=== PATIENT | male | born 1945 | race Caucasian/White ===

== ENCOUNTER → 2020-04-08 09:04 | Outpatient (BNVA) | payer MEDICARE, SELFPAY | PROVIDERS: Family Provider Internal Medicine; PCP Internal Medicine; Referring Provider Dermatology; Visit Provider Dermatology | DX: L30.0 Nummular dermatitis (principal) | CPT/HCPCS: 99203 ==

== ENCOUNTER 2020-12-19 13:23 | Emergency (ER) | payer OTHER, MEDICARE, SELFPAY ==
[2020-12-19 13:29] VITALS: BP 135/66; PULSE 71; RESP 18; TEMP 37.1; O2SAT 97; BMI 31.3
--- NOTE | 2020-12-19 13:42 | W.ED.WEAKNES ---
HPI - Weakness General: Chief complaint: Weakness Stated complaint: dizzy, weakness Time Seen by Provider: 12/19/20 13:42 History of Present Illness: HPI Narrative: 85-year-old male presents to the emergency room with complaint of weakness and progressive cognitive decline. Last several days he is fallen multiple times not remembering to eat or take medications. He is essentially nonverbal when he arrives here he can get him to engage in and questions all of his history is provided by old records and his family. They deny any recent febrile illness he seems to be coughing a little bit more but have not noticed that he is coughing anything up is not any vomiting or diarrhea no hematochezia melena hematemesis cough emesis there is no report of trauma he is not on any anticoagulants. He has a history of coronary artery disease. MD Complaint: generalized weakness Onset (ago): day(s) Duration: constant Location: generalized Severity: moderate Relieving factors: none Exacerbating factors: none Associated symptoms: Reports confusion, decreased appetite and easy bruising; Denies chest pain, chills, melena, diaphoresis, dysuria, fever(s), headache(s), myalgias, nausea, rash, short of breath, syncope or vomiting Review of Systems Const: Denies: fever(s), chills or diaphoresis ENMT: Denies: throat pain, ear or mastoid pain, nasal discharge or nasal congestion Card: Denies: chest pain or syncope Resp: Denies: dyspnea, productive cough or non-productive cough GI: Denies: nausea, vomiting or melena : Denies: dysuria Skin/Breast: Denies: rash or pruritus Neuro: Reports: confusion; Denies: headache(s) Rudy/Lymph: Reports: easy bruising [facility] ED PFS: Medical History (Updated 12/19/20 @ 17:18 by Speedy Skinner DO) Alcohol abuse ASHD (arteriosclerotic heart disease) Cardiomyopathy COPD (chronic obstructive pulmonary disease) CVA (cerebral vascular accident) Dyslipidemia HTN (hypertension) Myocardial infarction Transaminitis Social History Smoking and tobacco status: never smoked Alcohol intake: never Marital status: Single service: Yes branch: [employer] Physical Exam Const: COMMON NORMALS: no acute distress GENERAL APPEARANCE: comfortable HENMT: COMMON NORMALS: normocephalic, atraumatic and hearing grossly normal bilaterally HEAD & SCALP: normocephalic and atraumatic Eye: COMMON NORMALS: Equal, round and reactive pupils present, EOMs intact bilaterally, conjunctivae normal and no scleral icterus CONJUNCTIVA: Yes conjunctivae normal PUPIL: Yes Equal, round and reactive pupils present Neck/C-Spine: COMMON NORMALS: full ROM, no lymphadenopathy, supple and no JVD Lymph: LYMPHATIC: no lymphadenopathy noted and no lymphedema noted Resp: COMMON NORMALS: normal respiratory effort, No retractions, No use of accessory muscles and clear to auscultation bilaterally AUSCULTATION: clear to auscultation bilaterally Cardio: COMMON NORMALS: no JVD, regular rate, regular rhythm and No murmurs present (Cardio) RATE: regular rate RHYTHM: regular rhythm GI: COMMON NORMALS: Soft to palpation and No hepatosplenomegaly present AUSCULTATION: Yes normoactive bowel sounds PALPATION: Yes Soft to palpation, No Tenderness to palpation present (GI), No Guarding due to palpation present (GI) and Yes No hepatosplenomegaly present Extremity: COMMON NORMALS: normal to inspection, capillary refill normal, no clubbing, cyanosis or edema, no calf tenderness and no pedal edema Skin: COMMON NORMALS: no rashes or lesions noted GENERAL SKIN EXAM: no rashes or lesions noted Course Vital Signs: Vital signs: Vital Signs Temperature 98.7 F 12/19/20 13:29 Pulse Rate 71 12/19/20 13:29 Respiratory Rate 18 12/19/20 13:29 Blood Pressure 135/66 12/19/20 13:29 Pulse Oximetry 97 12/19/20 13:29 MDM - Weakness MDM Narrative: Medical decision making narrative: Work-up negative is no sign of bladder infection or lung infection he is anemic and hyponatremic both of these are chronic issues. His kidney function is mildly elevated but not significant enough for hospitalization. Recommend he establish with a primary care suspect he will need senior care placement in rehab for long-term care with his developing dementia symptoms worsen or change return to the emergency room Lab Data: Labs: Lab Results 12/19/20 12/19/20 12/19/20 Range/Units 14:14 14:14 15:45 WBC 6.0 (4.0-10.0) 10^3/ uL RBC 2.55 L (4.1-5.3) 10^6/u L Hgb 9.8 L (11.7-16.6) g/dL Hct 27.8 L (42.0-52.0) % MCV 109.0 H (80-94) fL MCH 38.4 H (28.0-34.0) pg MCHC 35.3 (30.0-36.0) g/dL RDW 14.0 (12.1-15.1) % Plt Count 325 (130-400) 10^3/c mm MPV 10.1 (7.4-10.4) fL Neut % (Auto) 66.1 % Lymph % (Auto) 14.0 % [place] % (Auto) 15.2 % Eos % (Auto) 3.2 % Baso % (Auto) 1.0 % Neut # (Auto) 3.97 (1.8-7.7) 10^3/u L Lymph # (Auto) 0.8 (0.8-4.8) 10^3/u L [place] # (Auto) 0.9 (0.2-0.9) 10^3/u L Eos # (Auto) 0.2 (0.0-0.8) 10^3/u L Baso # (Auto) 0.1 (0.0-0.1) 10^3/u L Nucleated RBC % (a uto) 0 % Nucleated RBCs # 0.0 /100WBC Sodium 130 L (136-145) mmol/L Potassium 4.6 (3.5-5.1) mmol/L Chloride 93 L (98-107) mmol/L Carbon Dioxide 25 (22-29) mmol/L Anion Gap 16.6 (5-19) BUN 17 (8-23) mg/dL Creatinine 1.3 H (0.7-1.2) mg/dL GFR Calculation Not Reportable Glucose 99 (65-115) mg/dL Calculated Osmolal ity 272 L (285-295) mOsm/k g Calcium 9.2 (8.5-10.5) mg/dL Total Bilirubin 0.5 (0.15-1.2) mg/dL AST 83 H (0-40) U/L ALT 34 (0-41) U/L Alkaline Phosphata se 120 (40-130) IU/L Total Protein 7.2 (6.6-8.7) g/dL Albumin 4.3 (3.5-5.2) g/dL Globulin 2.9 (1.3-4.6) g/dL Urine Color Yellow (Yellow) Urine Appearance Clear (CLEAR) Urine pH 5 (5-7) Ur Specific Gravit y 1.015 (1.005-1.030) Urine Protein Neg (Negative) Urine Glucose (UA) Norm (Normal) Urine Ketones 1+ H (Negative) Urine Blood Neg (Negative) Urine Nitrate Negative (Negative) Urine Bilirubin 1+ H (Negative) Urine Urobilinogen 1 H (Negative) mg/dL Ur Leukocyte Sandie ase Negative (Negative) Discharge Plan Discharge Patient Disposition: Home Clinical Impression: Dementia, Generalized weakness Condition: Stable Prescriptions: No Action gabapentin 300 mg capsule 300 mg PO BID RF: 0 aspirin [Aspir-81] 81 mg tablet,delayed release (DR/EC) 81 mg PO DAILY RF: 0 simvastatin 40 mg tablet 40 mg PO DAILY Qty: 90 RF: 3 metoprolol tartrate 50 mg tablet 50 mg PO BID Qty: 180 RF: 0 losartan 50 mg tablet 50 mg PO DAILY Qty: 90 RF: 3 terbinafine HCl 1 % Cream 1 applic TOPICAL BID RF: 0 Flomax 0.4 mg Capsule 0.4 mg PO DAILY RF: 0 Protonix 40 mg Tablet,Delayed Release (Dr/Ec) 40 mg PO DAILY RF: 0 Aleve 220 mg Tablet 220 - 440 mg PO PRN RF: 0 Lasix 20 mg Tablet 20 mg PO DAILY RF: 0 ProAir HFA 90 mcg/actuation Hfa Aerosol Inhaler 2 puff INHALATION Q4H PRN (Reason: Shortness Of Breath) RF: 0 clopidogrel 75 mg tablet 75 mg PO DAILY RF: 0 Discharge Orders: Discharge ED (Routine); Ordered 12/19/20 Ordered By: Speedy Skinner Referrals: Bruno Kennedy [Primary Care Provider] - Discharge Diet: Usual diet Discharge Activity: Limit activity as instructed Patient Instructions: Opioid Safety Activity Restrictions/Additional Instructions: His management will call to make arrangements to help you get established with a PCP. Coding Level of Care Code ED Concrete Grinder Operator for Shilag Fwd Exam Comprehensive
--- NOTE | 2020-12-19 13:43 | ECG_ITS ---
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/NU/[id number] f
--- NOTE | 2020-12-19 13:43 | XR_ITS ---
WS: [id number] Portable AP upright chest, 12/19/2020 Clinical Data: dyspnea/cough Comparison: Portable chest, 01/24/2019. Findings: No nodules, masses or effusions are seen. The heart is slightly enlarged. The pulmonary vas cularity is not increased. No pneumonia or pneumothorax is seen. There are bilateral hilar calcificat ions and peripheral right lung calcifications unchanged. The aortic arch and descending aorta show to rtuosity. Monitor leads are on the chest wall. XR/XR chest 1V portable [id number] Impression: 1. Atherosclerosis. 2. No change in bilateral hilar calcifications and peripheral right lung calcif ications.
--- NOTE | 2020-12-19 14:08 | CT_ITS ---
WS: [id number] CT HEAD TECHNIQUE: Noncontrast CT of the head obtained from the skullbase to the vertex. CLINICAL INFORMATION: AMS COMPARISON: 01 24, DLP: 868.[address] scans at [facility] use at least one of these dose optimization techniques: automat ed exposure control; mA and/or kV adjustment per patient size (includes targeted exams where dose is matched to clinical indication); or iterative reconstruction. FINDINGS: No evidence of intracranial hemorrhage or mass effect. Ventricular system and basal cisterns are fna nt. Moderate small vessel changes with moderate parenchymal volume loss. No extra-axial fluid collect ions. No evidence of mass or mass effect. Paranasal sinuses and mastoid air cells are well aerated. .Normal visualized soft tissues. CT/CT head wo con* [id number] IMPRESSION: 1. No evidence of intracranial hemorrhage or mass effect. 2. Moderate small vessel changes with moderate parenchymal volume loss. 3. No acute intracranial findings.
[2020-12-19 14:40] LABS: Alanine Aminotransferase 34 U/L (0-41); Albumin Level 4.3 g/dL (3.5-5.2); Alkaline Phosphatase 120 IU/L (40-130); Blood Urea Nitrogen 17 mg/dL (8-23); Calcium 9.2 mg/dL (8.5-10.5); Carbon Dioxide 25 mmol/L (22-29); Chloride 93 mmol/L (98-107); Globulin 2.9 g/dL (1.3-4.6); Glucose 99 mg/dL (65-115); Osmolality Calculated 272 mOsm/kg (285-295); Sodium 130 mmol/L (136-145); Total Bilirubin 0.5 mg/dL (0.15-1.2); Total Protein 7.2 g/dL (6.6-8.7)
[2020-12-19 14:42] LABS: Basophils # 0.1 10^3/uL (0.0-0.1); Eosinophils # 0.2 10^3/uL (0.0-0.8); Eosinophils % 3.2 %; Hematocrit 27.8 % (42.0-52.0); Hemoglobin 9.8 g/dL (11.7-16.6); Lymphocytes # 0.8 10^3/uL (0.8-4.8); Mean Corpuscular HGB Conc 35.3 g/dL (30.0-36.0); Mean Corpuscular Hemoglobin 38.4 pg (28.0-34.0); Mean Platelet Volume 10.1 fL (7.4-10.4); Monocytes # 0.9 10^3/uL (0.2-0.9); Monocytes % 15.2 %; Neutrophils # 3.97 10^3/uL (1.8-7.7); Neutrophils % 66.1 %; Nucleated Red Blood Cells % 0 %; Platelet Count 325 10^3/cmm (130-400); Red Blood Count 2.55 10^6/uL (4.1-5.3)
[2020-12-19 14:45] LABS: Anion Gap 16.6 (5-19); Aspartate Amino Transferase 83 U/L (0-40); Potassium 4.6 mmol/L (3.5-5.1)
[2020-12-19 16:00] VITALS: PULSE 59; RESP 20; O2SAT 100
[2020-12-19 16:12] LABS: Add Urine Microscopic? NO; Charge for UA Resulting for Rev
--- NOTE | 2020-12-19 16:34 | PC.PHAR ---
pt unable to verify medications-medications entered are meds that show on ext med history, pts va med list,pts medication bottles, and pts family-notes are made in the pharmacy comments
[2020-12-19 16:40] LABS: Blood Urine Neg (Negative); Glucose Urine UA Norm (Normal); Ketones Urine 1+ (Negative); Nitrate Urine Negative (Negative); Protein Urine Neg (Negative); Specific Gravity, Urine 1.015 (1.005-1.030); Urine Appearance Clear (CLEAR); Urine Color Yellow (Yellow); pH Urine 5 (5-7)
[2020-12-19 16:41] LABS: Bilirubin Urine 1+ (Negative); Leukocyte Esterase Urine Negative (Negative); Urobilinogen Urine 1 mg/dL (Negative)
[2020-12-19 17:00] VITALS: PULSE 61; RESP 22; O2SAT 100
[2020-12-19 18:08] VITALS: BP 148/60; PULSE 64; RESP 15; O2SAT 100
[2020-12-19 18:37] VITALS: BP 155/83; PULSE 64; RESP 14; O2SAT 98
--- NOTE | 2020-12-25 13:59 | DCPLANNER ---
trade show manager had message to speak with patient about getting established with a primary care physician, unable to reach patient at this time.
== END 2020-12-19 18:37 | disposition home or self-care (01) ==
PROVIDERS: Emergency Provider Family Medicine; PCP Internal Medicine
DX: R53.1 Weakness (principal); F03.90 Unspecified dementia, unspecified severity, without behavioral disturbance, psychotic disturbance, mood disturbance, and anxiety; Z79.82 Long term (current) use of aspirin; Z79.02 Long term (current) use of antithrombotics/antiplatelets; J44.9 Chronic obstructive pulmonary disease, unspecified; Z86.73 Personal history of transient ischemic attack (TIA), and cerebral infarction without residual deficits; E78.5 Hyperlipidemia, unspecified; I10 Essential (primary) hypertension; I25.2 Old myocardial infarction
CPT/HCPCS: 70450; 71045; 80053; 81003; 85025; 93005; 99283

== ENCOUNTER 2020-12-22 12:28 | Inpatient (IN) | payer OTHER, MEDICARE, SELFPAY ==
[2020-12-22] VITALS (34 sets, daily range): BP systolic 104–166; BP diastolic 56–118; PULSE 72–114; RESP 16–31; TEMP 37.3–37.4; O2SAT 89–100; BMI 23.5
--- NOTE | 2020-12-22 | XRR_ITS ---
PROCEDURE INFORMATION: Exam: XR Chest Exam date and time: 12/22/2020 10:57 PM Age: 75 years old Clinical indication: Device placement; Ng tube; Additional info: Ng placement TECHNIQUE: Imaging protocol: XR of the chest. Views: 1 view. COMPARISON: CR XR chest 1V portable [id number] 12/19/2020 1:50 PM FINDINGS: Tubes, catheters and devices: The distal tip of the NG tube is just beyond the esophageal hiatus in the gastric cardia area. Distal side hole above the esophageal hiatus. Lungs: Chronic calcifications in the right upper lobe with mild volume loss. No focal acute pulmonary consolidation. Pleural spaces: Unremarkable. No pleural effusion. No pneumothorax. Heart/Mediastinum: Unremarkable. No cardiomegaly. Bones/joints: Unremarkable. XR/XR chest 1V portable [id number] IMPRESSION: Recommend advancement of the NG tube 10-15 cm
--- NOTE | 2020-12-22 12:28 | ED_ITS ---
HPI - Seizure General: Chief Complaint: Seizure Stated Complaint: AMS/ POSSIBLE SEIZURE Time Seen by Provider: 12/22/20 12:28 History of Present Illness: HPI Narrative: 75-year-old male brought in by EMS he was seen 3 days ago was altered mental status work-up was unremarkable and ultimately we discharged him home today he returns they thought he had had a possible seizure shortly after arriving here he had a fixed gaze to the left and upward with nystagmus and torticollis movements of his head with rhythmic movements through his neck no tonic-clonic movements in his upper or lower extremities he was nonresponsive during this time. Patient is a former alcoholic. His blood sugar in the field was in the 130s. complaint: possible seizure Onset (ago): minute(s) Description of Episode: loss of consciousness, tonic-clonic movement and post- event confusion Witnessed: Yes - by Other (Myself and other ER staff) Trauma: No Place: Home Associated symptoms: Deny chest pain, chills, fever(s) or malaise Treatments prior to arrival: none Review of Systems Const: Denies: fever(s), chills, body aches, change in appetite, fatigue or malaise ENMT: Denies: throat pain, ear or mastoid pain, nasal discharge or nasal congestion Card: Denies: chest pain, edema, dyspnea on exertion or orthopnea Resp: Denies: dyspnea, productive cough or non-productive cough GI: Denies: abdominal pain, nausea, vomiting, hematemesis, coffee ground emesis, diarrhea, constipation, bloating, hematochezia or melena : Denies: flank pain, dysuria, urinary frequency or urinary urgency Skin/Breast: Denies: rash or pruritus PFSH ED PFSH: Medical History (Updated 12/22/20 @ 14:43 by Speedy Skinner DO) Alcohol abuse ASHD (arteriosclerotic heart disease) Cardiomyopathy COPD (chronic obstructive pulmonary disease) CVA (cerebral vascular accident) Dyslipidemia HTN (hypertension) Myocardial infarction Transaminitis Social History Smoking and tobacco status: never smoked Alcohol intake: never Marital status: Single service: Yes branch: [employer] Physical Exam Const: COMMON NORMALS: no acute distress HENMT: COMMON NORMALS: normocephalic, atraumatic and hearing grossly normal bilaterally HEAD & SCALP: normocephalic and atraumatic Neck/C-Spine: COMMON NORMALS: no JVD Resp: COMMON NORMALS: normal respiratory effort, No retractions, No use of accessory muscles and clear to auscultation bilaterally AUSCULTATION: clear to auscultation bilaterally Cardio: COMMON NORMALS: no JVD, regular rate, regular rhythm and No murmurs present (Cardio) RATE: regular rate RHYTHM: regular rhythm GI: COMMON NORMALS: Soft to palpation and No hepatosplenomegaly present AUSCULTATION: Yes normoactive bowel sounds PALPATION: Yes Soft to palpation, No Tenderness to palpation present (GI), No Guarding due to palpation present (GI) and Yes No hepatosplenomegaly present Extremity: COMMON NORMALS: normal to inspection, capillary refill normal, no clubbing, cyanosis or edema, no calf tenderness and no pedal edema Skin: COMMON NORMALS: no rashes or lesions noted GENERAL SKIN EXAM: no rashes or lesions noted Course Vital Signs: Vital signs: Vital Signs Temperature 99.2 F 12/22/20 12:31 Pulse Rate 87 12/22/20 14:42 Respiratory Rate 24 H 12/22/20 14:42 Blood Pressure 142/84 12/22/20 14:42 Pulse Oximetry 99 12/22/20 14:42 MDM - Seizure MDM Narrative: Medical decision making narrative: Witnessed seizure in the ER organ to go ahead and admit him gave him Ativan and Keppra. Sodium was slightly low otherwise he has some anemia, other ongoing issues he does have some underl patti dementia and hx of ETOH abuse. The dementia was being being addressed by his primary care doctor. discussed Dr. Greenwood orders written Lab Data: Labs: Lab Results 12/22/20 12/22/20 12/22/20 Range/Units 12:18 12:18 12:18 WBC 11.7 H (4.0-10.0) 10^3/ uL RBC 2.81 L (4.1-5.3) 10^6/u L Hgb 10.7 L (11.7-16.6) g/dL Hct 32.3 L (42.0-52.0) % MCV 114.9 H (80-94) fL MCH 38.1 H (28.0-34.0) pg MCHC 33.1 (30.0-36.0) g/dL RDW 14.5 (12.1-15.1) % Plt Count 384 (130-400) 10^3/c mm MPV 10.1 (7.4-10.4) fL Neut % (Auto) 82.2 % Lymph % (Auto) 4.2 % [place] % (Auto) 12.3 % Eos % (Auto) 0.2 % Baso % (Auto) 0.7 % Neut # (Auto) 9.63 H (1.8-7.7) 10^3/u L Lymph # (Auto) 0.5 L (0.8-4.8) 10^3/u L [place] # (Auto) 1.4 H (0.2-0.9) 10^3/u L Eos # (Auto) 0.0 (0.0-0.8) 10^3/u L Baso # (Auto) 0.1 (0.0-0.1) 10^3/u L Nucleated RBC % (a uto) 0 % Nucleated RBCs # 0.0 /100WBC Specimen Type Sample Site ABG pH (7.35-7.45) ABG pCO2 (35-45) mmHg ABG pO2 (80.0-100.0) mmH g ABG HCO3 (22-26) mmol/L ABG O2 Saturation ABG Base Excess (-2.0-2.0) mmol/ L Suhail Test A-a O2 Gradient (5-10) mmHg Hematocrit (42-52) % Hgb O2 Saturation (95-100) % Carboxyhemoglobin (0.4-20.1) %THgb Methemoglobin (0.4-1.5) % Total Hemoglobin (14-18) g/dL Ionized Calcium (1.1-1.4) mmol/L O2 Delivery Device FiO2 % Commercial Trailer Truck Driver ID Sodium 132 L (136-145) mmol/L Potassium 4.3 (3.5-5.1) mmol/L Chloride 96 L (98-107) mmol/L Carbon Dioxide 24 (22-29) mmol/L Anion Gap 16.3 (5-19) BUN 8 (8-23) mg/dL Creatinine 0.8 (0.7-1.2) mg/dL GFR Calculation Not Reportable Glucose 105 (65-115) mg/dL Calculated Osmolal ity 273 L (285-295) mOsm/k g Lactic Acid 1.7 (0.5-2.2) mmol/L Calcium 9.3 (8.5-10.5) mg/dL Magnesium 1.8 (1.7-2.3) mg/dL Total Bilirubin 0.4 (0.15-1.2) mg/dL AST 57 H (0-40) U/L ALT 29 (0-41) U/L Alkaline Phosphata se 106 (40-130) IU/L Creatine Kinase 239 (39-308) U/L Troponin T Baselin e (0-15) ng/L Total Protein 6.5 L (6.6-8.7) g/dL Albumin 3.9 (3.5-5.2) g/dL Globulin 2.6 (1.3-4.6) g/dL Urine Color (Yellow) Urine Appearance (CLEAR) Urine pH (5-7) Ur Specific Gravit y (1.005-1.030) Urine Protein (Negative) Urine Glucose (UA) (Normal) Urine Ketones (Negative) Urine Blood (Negative) Urine Nitrate (Negative) Urine Bilirubin (Negative) Urine Urobilinogen (Negative) mg/dL Ur Leukocyte Sandie ase (Negative) Urine RBC (0-2) /hpf Urine WBC (0-5) /hpf Ur Squamous Epith Cells (0-5) /hpf Amorphous Sediment Urine Bacteria (NONE) /hpf 12/22/20 12/22/20 12/22/20 Range/Units 12:18 12:36 12:55 WBC (4.0-10.0) 10^3/ uL RBC (4.1-5.3) 10^6/u L Hgb (11.7-16.6) g/dL Hct (42.0-52.0) % MCV (80-94) fL MCH (28.0-34.0) pg MCHC (30.0-36.0) g/dL RDW (12.1-15.1) % Plt Count (130-400) 10^3/c mm MPV (7.4-10.4) fL Neut % (Auto) % Lymph % (Auto) % [place] % (Auto) % Eos % (Auto) % Baso % (Auto) % Neut # (Auto) (1.8-7.7) 10^3/u L Lymph # (Auto) (0.8-4.8) 10^3/u L [place] # (Auto) (0.2-0.9) 10^3/u L Eos # (Auto) (0.0-0.8) 10^3/u L Baso # (Auto) (0.0-0.1) 10^3/u L Nucleated RBC % (a uto) % Nucleated RBCs # /100WBC Specimen Type Arterial Sample Site Radial, left ABG pH 7.46 H (7.35-7.45) ABG pCO2 33.1 L (35-45) mmHg ABG pO2 78.6 L (80.0-100.0) mmH g ABG HCO3 23.3 (22-26) mmol/L ABG O2 Saturation 95.2 ABG Base Excess -0.2 (-2.0-2.0) mmol/ L Suhail Test Pos A-a O2 Gradient 3.8 L (5-10) mmHg Hematocrit 31.7 L (42-52) % Hgb O2 Saturation 94.0 L (95-100) % Carboxyhemoglobin 0.3 L (0.4-20.1) %THgb Methemoglobin 1.0 (0.4-1.5) % Total Hemoglobin 10.3 L (14-18) g/dL Ionized Calcium 1.2 (1.1-1.4) mmol/L O2 Delivery Device Room air FiO2 21.0 % Commercial Trailer Truck Driver ID Amh Sodium 133.0 (136-145) mmol/L Potassium 4.3 (3.5-5.1) mmol/L Chloride (98-107) mmol/L Carbon Dioxide (22-29) mmol/L Anion Gap (5-19) BUN (8-23) mg/dL Creatinine (0.7-1.2) mg/dL GFR Calculation Glucose 110.0 (65-115) mg/dL Calculated Osmolal ity (285-295) mOsm/k g Lactic Acid (0.5-2.2) mmol/L Calcium (8.5-10.5) mg/dL Magnesium (1.7-2.3) mg/dL Total Bilirubin (0.15-1.2) mg/dL AST (0-40) U/L ALT (0-41) U/L Alkaline Phosphata se (40-130) IU/L Creatine Kinase (39-308) U/L Troponin T Baselin e 64 H (0-15) ng/L Total Protein (6.6-8.7) g/dL Albumin (3.5-5.2) g/dL Globulin (1.3-4.6) g/dL Urine Color Yellow (Yellow) Urine Appearance Cloudy (CLEAR) Urine pH 7 (5-7) Ur Specific Gravit y 1.010 (1.005-1.030) Urine Protein Trace (Negative) Urine Glucose (UA) Norm (Normal) Urine Ketones Negative (Negative) Urine Blood 2+ H (Negative) Urine Nitrate Positive H (Negative) Urine Bilirubin 1+ H (Negative) Urine Urobilinogen 1 H (Negative) mg/dL Ur Leukocyte Sandie ase 1+ H (Negative) Urine RBC 0-4 H (0-2) /hpf Urine WBC 10-15 H (0-5) /hpf Ur Squamous Epith Cells 0-4 H (0-5) /hpf Amorphous Sediment Not Reportable Urine Bacteria 2+ H (NONE) /hpf Discharge Plan Discharge Patient Disposition: Admitted As Inpatient Clinical Impression: New onset seizure, Alcohol abuse, HTN (hypertension), ASHD (arteriosclerotic heart disease), Dementia Condition: Stable Coding Level of Care Code ED Car Worker for Harris Fwd Exam Comprehensive
--- NOTE | 2020-12-22 12:29 | ECG_ITS ---
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 Measurements Intervals [place] Rate: 98 P: 29 [place]: 153 QRS: 5 QRSD: 107 T: 113 QT: 362 QTc: 464 Interpretive Statements SINUS RHYTHM NONSPECIFIC T-WAVE ABNORMALITY Compared to ECG 12/19/2020 13:35:35 No significant changes Electronically Signed On 12-22-2020 19:08:37 CDT by Rocky Sanchez M.D. [id number]
--- NOTE | 2020-12-22 12:29 | CT_ITS ---
WS: [id number] CT HEAD NONCONTRAST HISTORY: AMS TECHNIQUE: Contiguous axial imaging performed through the brain in 2.5 mm imaging. Bone and soft tiss ue windows. Sagittal and coronal reformats reviewed. All CT scans at [facility] use at ast one of these dose optimization techniques: automated exposure control; mA and/or kV adjustment pe r patient size (includes targeted exams where dose is matched to clinical indication); or iterative r econstruction. DLP: 1570.38 mGy.cm COMPARISON: 12/19/2020 No acute intracranial hemorrhage, midline shift or mass effect. Moderate bilateral symmetric atrophy. Mild chronic microvascular ischemic disease. Ventricles: Ventricles and extra-axial spaces are mildly prominent due to atrophy. Paranasal sinuses: As visualized are clear. Mastoid air cells: Well pneumatized. Calvarium and scalp: Skull is intact with no soft tissue edema or swelling. CT/CT head wo con* [id number] IMPRESSION: 1. No acute intracranial hemorrhage or edema. 2. Moderate atrophy. Similar to the prior study of 12/19/2020.
[2020-12-22] MEDS: LORazepam 2 mg/mL INJ 1 mL IVP ×2 (12:37→20:57)
[2020-12-22 12:47] LABS: ABG PCO2 33.1 mmHg (35-45); ABG PH Result 7.46 (7.35-7.45); Alveolar-Arterial Oxygen Gradi 3.8 mmHg (5-10); Arterial Blood Gas Hematocrit 31.7 % (42-52); Base Excess ABG -0.2 mmol/L (-2.0-2.0); Blood Gas Allen Test Pos; Blood Gas Operator Identificat AMH; Blood Gas Sample Site Radial, left; Blood Gas Sample Type Arterial; Carboxyhemoglobin 0.3 %THgb (0.4-20.1); HCO3 ABG 23.3 mmol/L (22-26); Ionized Calcium Level - ABG 1.2 mmol/L (1.1-1.4); Oxygen Device ROOM AIR; Oxygen Saturation ABG 95.2; PO2 ABG 78.6 mmHg (80.0-100.0); Potassium Level - ABG 4.3 mmol/L (3.5-5.0); Total Hemoglobin 10.3 g/dL (14-18)
[2020-12-22 13:09] LABS: Basophils # 0.1 10^3/uL (0.0-0.1); Basophils % 0.7 %; Eosinophils % 0.2 %; Hematocrit 32.3 % (42.0-52.0); Hemoglobin 10.7 g/dL (11.7-16.6); Lymphocytes # 0.5 10^3/uL (0.8-4.8); Lymphocytes % 4.2 %; Mean Corpuscular HGB Conc 33.1 g/dL (30.0-36.0); Mean Corpuscular Hemoglobin 38.1 pg (28.0-34.0); Mean Corpuscular Volume 114.9 fL (80-94); Mean Platelet Volume 10.1 fL (7.4-10.4); Monocytes # 1.4 10^3/uL (0.2-0.9); Monocytes % 12.3 %; Neutrophils # 9.63 10^3/uL (1.8-7.7); Neutrophils % 82.2 %; Nucleated Red Blood Cells % 0 %; Platelet Count 384 10^3/cmm (130-400); Red Blood Count 2.81 10^6/uL (4.1-5.3); Red Cell Distribution Width 14.5 % (12.1-15.1); White Blood Count 11.7 10^3/uL (4.0-10.0)
--- NOTE | 2020-12-22 13:14 | PC.NURSE ---
Pt to CT
[2020-12-22 13:19] LABS: Bilirubin Urine 1+ (Negative); Blood Urine 2+ (Negative); Glucose Urine UA Norm (Normal); Ketones Urine Negative (Negative); Nitrate Urine Positive (Negative); Protein Urine Trace (Negative); Urine Appearance Cloudy (CLEAR); Urine Color Yellow (Yellow); Urobilinogen Urine 1 mg/dL (Negative); pH Urine 7 (5-7)
[2020-12-22 13:20] LABS: Add Urine Microscopic? YES; Leukocyte Esterase Urine 1+ (Negative)
[2020-12-22 13:21] LABS: Lactic Sepsis W/Reflex 1.7 mmol/L (0.5-2.2)
[2020-12-22 13:22] LABS: Alanine Aminotransferase 29 U/L (0-41); Albumin Level 3.9 g/dL (3.5-5.2); Alkaline Phosphatase 106 IU/L (40-130); Anion Gap 16.3 (5-19); Aspartate Amino Transferase 57 U/L (0-40); Blood Urea Nitrogen 8 mg/dL (8-23); Calcium 9.3 mg/dL (8.5-10.5); Carbon Dioxide 24 mmol/L (22-29); Chloride 96 mmol/L (98-107); Creatine Phosphokinase 239 U/L (39-308); Creatinine Clr Calc Pharmacy 76.6283; Globulin 2.6 g/dL (1.3-4.6); Glucose 105 mg/dL (65-115); Magnesium 1.8 mg/dL (1.7-2.3); Osmolality Calculated 273 mOsm/kg (285-295); Potassium 4.3 mmol/L (3.5-5.1); Sodium 132 mmol/L (136-145); Total Bilirubin 0.4 mg/dL (0.15-1.2); Total Protein 6.5 g/dL (6.6-8.7)
[2020-12-22 13:25] LABS: Troponin(5th) Baseline 64 ng/L (0-15)
[2020-12-22 13:35] LABS: Add Urine Culture? Yes; Bacteria Urine 2+ /hpf; RBC Urine 0-4 /hpf (0-2); Squamous Epithelial Cell Urine 0-4 /hpf (0-5)
[2020-12-22] MEDS: cefTRIAXone 1,000 MG in sodium chloride 0.9% (plus) 50 ML 100 MG IV (14:08)
--- NOTE | 2020-12-22 14:29 | ECG_ITS ---
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 Measurements Intervals [place] Rate: 104 P: [place]: QRS: 13 QRSD: 86 T: 250 QT: 371 QTc: 490 Interpretive Statements RHYTHM ASSESSMENT NOT POSSIBLE BECAUSE OF BASELINE ARTIFACT MODERATE T-WAVE ABNORMALITY, CONSIDER INFERIOR ISCHEMIA [-0.1+ mV T WAVE IN II/aVF] Compared to ECG 12/22/2020 12:42:41 Possible ischemia now present Sinus rhythm no longer present T-wave abnormality still present Electronically Signed On 12-22-2020 19:09:58 CDT by Rocky Sanchez M.D. [email or web address]/OM/[id number]
[2020-12-22 14:59] LABS: Troponin 5 2HR 65.63 ng/L (0-15); Troponin 5 2HR Delta 1.63 ABS# (0-10)
--- NOTE | 2020-12-22 15:38 | PM.HP ---
Providers/Chief Complaint Primary Care Provider: [facility] Chief Complaint: AMS/ POSSIBLE SEIZURE History of Present Illness 75-year-old gentleman with history of CAD, HTN, current smoker, alcohol abuse, COPD, cardiomyopathy living independently, intermittently visited by his sister for help around home and to check up on him, doing groceries delivered to him, apart from that overall with some memory decline, but able to get around, cook for himself, however, recently more confused, with more trouble with his memory, all seem more recent within about a week or so, since due to confusion, memory issues sister status was unable to do anything for himself or even walk. She does state that she had taken away his cigarettes as he was an active smoker up until now, and also had cut off his supply of liquor, stating he had not drink anything at least since Tuesday unless he was getting it elsewhere. She denies that he had had any specific complaints. He does have a rash around his body which he has been putting an ointment for as prescribed by his manager flight and it has been improving. She states that she has had a few falls, and will try to crawl around floor when she was not there by his side. She took him to his primary care provider, and in the office he had had a seizure. He was then transferred to ER where he has had further 2 episodes but none more so far. During the seizure he was noted to have gaze deviation to the left. This had resolved after treatment with benzodiazepine, and he was loaded with Keppra as well. So far he has not woken up. In ER he also received a dose of ceftriaxone due to possible urinary tract infection as indicated by UA. Head CT in the ER without intracranial hemorrhage or edema. Moderate atrophy. His sister Génesis denies any additional recent issues. He does get bothered by chronic left shoulder pain for which he takes pain medications. She does state that he had not taken his medications in likely at least several days. She denies any recent fever. Denies any other rashes. Denies tick bite. She states she does not have prior advanced directives. She has 2 children but they have been estranged for over 40 years. She and her sister are his only close relatives at this time. She reports she had previously indicated he would not want CPR or intubation. Review of Systems Narrative: Patient unable to provide his own review of systems. Review of systems obtained from his sister. Const: Reports: other (Confused, generally weak, unable to walk.); Denies: fever(s), chills, body aches or malaise Eyes: Denies: change in vision or eye redness ENMT: Denies: throat pain, oral sores or ear or mastoid pain Card: Denies: chest pain, edema, pre-syncope or dyspnea on exertion Resp: Denies: dyspnea, productive cough, change in phlegm color or hemoptysis GI: Denies: abdominal pain, nausea, vomiting, diarrhea, constipation, hematochezia or melena : Denies: flank pain, difficulty urinating, urinary frequency or hematuria Musc: Reports: other (Chronic left shoulder pain); Denies: back pain, joint swelling or joint redness Skin/Breast: Denies: rash, sores or new lesions Neuro: Reports: difficulty walking, frequent falls, confusion and seizure-like activity; Denies: headache(s), numbness in extremities or dizziness Endo: Denies: polyuria or polydipsia Rudy/Lymph: Denies: easy bleeding or purpura All/Imm: Denies: urticaria, throat swelling or tongue swelling Medications/Allergies Home Medications Medication Instructions Recorded Confirmed Last Taken Type gabapentin 300 mg capsule 300 mg PO BID 10/19/19 12/22/20 12/20/20 History simvastatin 40 mg tablet 40 mg PO DAILY #90 tab 02/18/20 12/22/20 12/20/20 Rx losartan 50 mg tablet 50 mg PO DAILY #90 tab 08/18/20 12/22/20 Unknown Rx metoprolol tartrate 50 mg tablet 50 mg PO BID #180 tab 08/18/20 12/22/20 12/20/20 Rx albuterol sulfate [ProAir HFA] 2 puff INHALATION Q4H PRN 12/19/20 12/22/20 Unknown History clopidogrel 75 mg PO DAILY 12/19/20 12/22/20 12/20/20 History furosemide [Lasix] 20 mg PO DAILY 12/19/20 12/22/20 12/20/20 History naproxen sodium [Aleve] 220 - 440 mg PO PRN 12/19/20 12/22/20 Unknown History pantoprazole [Protonix] 40 mg PO DAILY 12/19/20 12/22/20 12/20/20 History tamsulosin [Flomax] 0.4 mg PO DAILY 12/19/20 12/22/20 12/19/20 History terbinafine HCl 1 applic TOPICAL BID 12/19/20 12/22/20 Unknown History aspirin [Aspir-81] 81 mg PO DAILY 12/22/20 12/22/20 12/20/20 History hydroxyzine HCl 10 mg PO QID PRN 12/22/20 12/22/20 Unknown History Allergies Allergy/AdvReac Type Severity Reaction Status Date / Time No Known Allergies Allergy Verified 12/19/20 16:34 PFSH Acute PFSH: Medical History (Updated 12/22/20 @ 15:52 by Remy Greenwood MD) Alcohol abuse ASHD (arteriosclerotic heart disease) Cardiomyopathy COPD (chronic obstructive pulmonary disease) CVA (cerebral vascular accident) Dyslipidemia HTN (hypertension) Myocardial infarction Transaminitis Surgical History Stented coronary artery Social History (Updated 12/22/20 @ 15:42 by Remy Greenwood MD) Smoking and tobacco status: current every day smoker Alcohol intake: current Substance/Drug Use: never Caregiver/support person: Yes Lives independently: Yes Marital status: / service: Yes branch: [employer] Vitals/I&O/Wt Last Vital Signs Temp 99.2 F 12/22/20 12:31 Pulse 91 12/22/20 15:34 Resp 28 H 12/22/20 15:34 BP 121/94 12/22/20 15:34 Pulse Ox 95 12/22/20 15:34 12/22/20 12/22/20 12/22/20 06:59 14:59 22:59 Intake Total 110 / 110 Balance 110 / 110 Weight last 48 hrs Weight 68.039 kg Physical Exam Const: COMMON NORMALS: no acute distress; negative for patient oriented x3 GENERAL APPEARANCE: frail appearing ORIENTATION/CONSCIOUSNESS: Yes patient obtunded HENMT: COMMON NORMALS: oropharynx normal Neck/C-Spine: COMMON NORMALS: no JVD Resp: COMMON NORMALS: normal respiratory effort AUSCULTATION: rhonchi Cardio: COMMON NORMALS: no JVD, regular rhythm, S1 normal heart sound present, S2 normal heart sound present and No murmurs present (Cardio) RHYTHM: regular rhythm HEART SOUNDS: S1 normal heart sound present and S2 normal heart sound present GI: COMMON NORMALS: Normal to inspection, nondistended, normoactive bowel sounds present, Soft to palpation and non-tender PALPATION: Yes Soft to palpation Extremity: COMMON NORMALS: no joint enlargement and no pedal edema OTHER: Bruising around second, third toes of the left foot, fourth, fifth toes on the right foot. Neuro: COMMON NORMALS: moves all extremities; negative for patient oriented x3 SENSORIUM/ORIENTATION: Yes lethargic (Occ moaning, not responding to voice, sternal rub. Moves extremities.) and Yes obtunded MOTOR EXAM: Motor fasciculations not present and Abnormal muscle tone present hypertonic: all Right pupil size (mm): 2 Left pupil size (mm): 2 Skin: GENERAL SKIN EXAM: ecchymosis OTHER: Nummular dermatitis lesions of feet, several abrasions on the lower legs. Abrasion of distal fourth toe medial to the nail. Urinary Catheter Management^: Ricardo: Cath Placed During This Visit: yes Urinary Catheter Date of Insertion: 12/22/20 Urinary Catheter Time of Insertion: 12:57 Data : 12/22/20 12:18 12/22/20 12:18 Micro: Microbiology 12/22/20 14:25 Blood Culture - Preliminary Blood SPECIMEN COLLECTED A&P Assessment and plan (1) New onset seizure: New onset seizures. Does appear to have CVA listed as prior diagnosis, although without major changes noted on CT. Presentation overall nonfocal. Sister is not aware of prior CVA. He is, however a heavy drinker, and sister states had not had a drink since Tuesday. Discussed with her concern regarding alcohol withdrawal with severe withdrawal, delirium tremens, and withdrawal seizure. In ER received Ativan, loaded with Keppra. Continue supportive care for alcohol withdrawal, monitor for any additional seizure and treat first choice with benzodiazepine. Continue Keppra. Maintain seizure precautions. Once he is able to may benefit from assessment by MRI due to new onset seizure, follow-up with neurology. No longer appears to have gaze deviation, but has not woken up. Requested ICU bed for him. Status: Acute (2) Metabolic encephalopathy: Acute encephalopathy for about a weeks duration, sister notes progressive worsening of memory, general faculties, subsequently to the point of being unable to care for himself, generalized weakness, frequent falls, progressive confusion and memory loss. Prior to that was needing assistance, with groceries being delivered, sister checking up on him intermittently, but able to hold conversation, cook for himself. Currently concern for acute encephalopathy secondary to alcohol withdrawal, possibly postictal state after seizure as well, he also has not taken his medications in several days per sister. Could be medication withdrawal including gabapentin. Also appears to have urinary tract infection. We will see if we can get NG tube placed. Resume gabapentin, continue seizure management as above. Treat UTI. Check TSH. Minimal hyponatremia, doubt contributing. With history of heavy alcohol intake, known prior history of cirrhosis. The liver appears normal. Minimal hyponatremia, mild AST elevation, although chronicity unknown. Will request for a ultrasound to check for ascites, liver echogenicity. Status: Acute (3) Alcohol withdrawal: Benzodiazepines, supportive care, vitamin replacement as per [facility] protocol. Requested ICU bed for him. Status: Acute (4) UTI (urinary tract infection): Continue Rocephin. Follow-up urine culture. Check abdominal ultrasound. Status: Acute (5) Repeated falls: Secondary to metabolic encephalopathy, generalized weakness, alcohol withdrawal, UTI, will benefit from PT, OT once he is able to participate. Status: Acute (6) Difficulty walking: As above. Lives alone. Status: Acute Additional A&P Information Abrasion on lower extremities, fourth toe. Wound care. Bruising of third and fourth on the left and fourth and fifth toes on the right following several falls. Will request imaging with x-ray. CAD status post stenting: Continue cardiac meds. HTN HLD Reported history of CVA Cardiomyopathy COPD Current smoker Heavy alcohol intake Nummular exema Attestations Medical Necessity Statement*: Admission of over 2 midnights is going to needed versus management of acute encephalopathy, new onset seizure, severe alcohol withdrawal, UTI Coding Level of Care Code Acute Pharmacy Benefit Manager for [facility] Fwd Diagnoses New onset seizure R56.9 Metabolic encephalopathy G93.41 Alcohol withdrawal F10.239 UTI (urinary tract infection) N39.0 Repeated falls R29.6 Difficulty walking R26.2
--- NOTE | 2020-12-22 16:04 | USR_ITS ---
PROCEDURE INFORMATION: Exam: US Abdomen Complete Exam date and time: 12/22/2020 4:09 PM Age: 75 years old Clinical indication: Abdominal tenderness; Patient HX: Heavy alcohol intake history encephalopathy; Additional info: Ascites? Cirrhosis? Encephalopathy? Hydronephrosis. Heavy alcohol intake history. UTI TECHNIQUE: Imaging protocol: Real-time ultrasound of the abdomen with image documentation. COMPARISON: No relevant prior studies available. FINDINGS: Liver: Mild increase in liver parenchyma echogenicity without focal mass. No enlargement. Smooth surface contour. Gallbladder: Normal. No gallstones. There is no gallbladder wall thickening. Common bile duct: Normal. No stones. No dilation. Pancreas: Visualized pancreas is unremarkable. Right kidney: Right renal length 11.7 cm. Moderate severity diffuse cortical volume loss. Exophytic small simple upper pole cyst 1 cm diameter. Negative for hydronephrosis. No echogenic stones. Left kidney: Left renal length 9.3 cm. Negative hydronephrosis. Diffuse cortical volume loss. Simple exophytic cyst in the upper pole 1.6 cm diameter. Spleen: Splenic length 9.9 cm. Unremarkable morphology. Aorta: Diffuse atherosclerosis of abdominal aorta noted with echogenic plaques along the live. No obvious aneurysm. Inferior vena cava: Normal. Intraperitoneal space: No ascites. US/US abdomen complete* [id number] IMPRESSION: No acute findings.
--- NOTE | 2020-12-22 16:31 | PC.NURSE ---
US at bedside
--- NOTE | 2020-12-22 17:38 | XRR_ITS ---
PROCEDURE INFORMATION: Exam: XR Right Foot Exam date and time: 12/22/2020 6:07 PM Age: 75 years old Clinical indication: Injury or trauma; Fall; Blunt trauma; Foot; Bilateral; Additional info: Falls, bruising of toes TECHNIQUE: Imaging protocol: XR Right foot. Views: 3 or more views. COMPARISON: CR Ankle 3 views, RIGHT* [id number] 03/06/2017 4:10 PM FINDINGS: Bones/joints: Evaluation is limited by positioning. No gross evidence for acute bony injury or malalignment in the visualized right foot. Degenerative change. Soft tissues: No radiopaque soft tissue foreign body. XR/XR foot RT min 3V* [id number] IMPRESSION: Evaluation is limited by positioning. No gross evidence for acute bony injury or malalignment in the visualized right foot.
--- NOTE | 2020-12-22 17:38 | XRR_ITS ---
PROCEDURE INFORMATION: Exam: XR Left Foot Exam date and time: 12/22/2020 6:07 PM Age: 75 years old Clinical indication: Injury or trauma; Fall; Blunt trauma; Foot; Bilateral; Additional info: Falls, bruising of toes TECHNIQUE: Imaging protocol: XR Left foot. Views: 3 or more views. COMPARISON: CR Foot 3 views, LEFT* [id number] 03/06/2017 4:24 PM FINDINGS: Bones/joints: Evaluation is limited by positioning. No gross evidence for acute bony injury or malalignment in the visualized left foot. Degenerative change. Soft tissues: Well-circumscribed 3 mm nodular radiopaque density about the medial aspect of the 1st IP joint. XR/XR foot LT min 3V* [id number] IMPRESSION: Evaluation is limited by positioning. No gross evidence for acute bony injury or malalignment in the visualized left foot.
--- NOTE | 2020-12-22 18:29 | ECG_ITS ---
[facility] Test Date: 2020-12-23 Pat Name: Pierce Bailey Department: Room: ICU02 Gender: Male Forge Operator: : [id number] Requested By: Speedy Sneed Order Number: [id number] Eric MD: Rocky Sanchez M.D. Measurements Intervals Rocky Rate: 99 P: 60 RI: 190 QRS: 2 QRSD: 87 T: 97 QT: 335 QTc: 430 Interpretive Statements SINUS RHYTHM WITH OCCASIONAL VENTRICULAR PREMATURE COMPLEXES LOW QRS VOLTAGE IN PRECORDIAL LEADS [QRS DEFLECTION < 1.0 mV IN CHEST LEADS] NONSPECIFIC T-WAVE ABNORMALITY Compared to ECG 12/22/2020 14:23:19 Ventricular premature complex(es) now present Low QRS voltage now present Possible ischemia no longer present T-wave abnormality still present Electronically Signed On 12-23-2020 22:10:43 CDT by Rocky Sanchez M.D. [id number]
[2020-12-22] MEDS: sodium chloride 0.9% 1,000 ML 100 ML IV (18:30)
[2020-12-22 18:42] LABS: Thyroid Stimulating Hormone 4.18 uIU/mL (0.27-4.20)
--- NOTE | 2020-12-22 19:06 | PC.NURSE ---
Patient was admitted to ICU at around 1700. Patient does not respond to verbal commands. Withdrawn from pain only. Bruising, scabs and swelling was noted to bilateral ankles. This nurse attempted to place NG tube without success. Admission was completed by sister.
[2020-12-22 19:14] LABS: Troponin 5 6HR 45.77 ng/L (0-15)
[2020-12-22] MEDS: famotidine 20 mg/2 mL INJ IVP (20:57)
[2020-12-23] VITALS (49 sets, daily range): BP systolic 103–153; BP diastolic 56–121; PULSE 72–106; RESP 18–32; TEMP 37.2–37.8; O2SAT 89–100; BMI 25.0
[2020-12-23] MEDS: gabapentin 300 mg Capsule NG-TUBE ×3 (00:16→21:42)
[2020-12-23] MEDS: terbinafine 1% Cream 15 gm 1 APPLIC TOPICAL ×2 (00:17→09:51)
--- NOTE | 2020-12-23 00:30 | PC.NURSE ---
Chest X-Ray This nurse reviewed the patients chest x-ray report and advanced the NG tube 10 cm further into the stomach as the report mentioned.
[2020-12-23] MEDS: metoprolol tartrate 25 mg Tablet 12.5 MG NG-TUBE ×3 (00:35→21:43)
[2020-12-23] MEDS: sodium chloride 0.9% 1,000 ML 100 ML IV ×2 (03:47→16:56)
[2020-12-23 05:07] LABS: Basophils % 0.2 %; Eosinophils % 0.1 %; Hematocrit 28.5 % (42.0-52.0); Hemoglobin 9.1 g/dL (11.7-16.6); Lymphocytes # 0.7 10^3/uL (0.8-4.8); Lymphocytes % 6.2 %; Mean Corpuscular HGB Conc 31.9 g/dL (30.0-36.0); Mean Corpuscular Hemoglobin 38.6 pg (28.0-34.0); Mean Corpuscular Volume 120.8 fL (80-94); Mean Platelet Volume 9.8 fL (7.4-10.4); Monocytes % 19.1 %; Neutrophils # 7.74 10^3/uL (1.8-7.7); Nucleated Red Blood Cells % 0 %; Platelet Count 323 10^3/cmm (130-400); Red Blood Count 2.36 10^6/uL (4.1-5.3); Red Cell Distribution Width 14.7 % (12.1-15.1); White Blood Count 10.5 10^3/uL (4.0-10.0)
[2020-12-23 05:30] LABS: Alanine Aminotransferase 22 U/L (0-41); Albumin Level 3.1 g/dL (3.5-5.2); Alkaline Phosphatase 90 IU/L (40-130); Anion Gap 15.4 (5-19); Aspartate Amino Transferase 41 U/L (0-40); Blood Urea Nitrogen 8 mg/dL (8-23); Calcium 8.5 mg/dL (8.5-10.5); Carbon Dioxide 22 mmol/L (22-29); Chloride 102 mmol/L (98-107); Creatinine Clr Calc Pharmacy 76.6283; Globulin 2.8 g/dL (1.3-4.6); Glucose 85 mg/dL (65-115); Osmolality Calculated 278 mOsm/kg (285-295); Potassium 4.4 mmol/L (3.5-5.1); Sodium 135 mmol/L (136-145); Total Bilirubin 0.3 mg/dL (0.15-1.2); Total Protein 5.9 g/dL (6.6-8.7)
--- NOTE | 2020-12-23 06:45 | PC.NURSE ---
Shift Summary Patient has not had any verbal response all evening, only a few moans. Patient had a small brown smear for a bowel movement. Ricardo catheter had 430 mls of clear dark yellow urine out all evening. Patient has NS infusing at 100 mls/hr in the left forearm IV site. Scratches were noticed on the left foot and one scratch was noticed on the right arm which are both charted in the wound assessment. A skin tear was noticed on the left lower leg which is also charted in the wound assessment. Patient has audible crackles in the lungs and has to be suctioned frequently. NG tube was placed this evening and confirmed by chest x-ray. NG tube is not currently hooked to suction and has no tube feeding infusing. Patient received a bed bath and complete linen change this evening. Patient is currently on 2 liters of oxygen nasal cannula. Patient had episodes throughout the night of turning head towards the left side and the left side of the mouth twitches and the eyes close and twitch. No tremors were noted.
[2020-12-23] MEDS: multivitamin therapeutic Tablet 1 TAB PO (08:32)
[2020-12-23] MEDS: thiamine 100 mg Tablet PO (08:32)
[2020-12-23] MEDS: atorvastatin 40 mg Tablet 20 MG NG-TUBE (08:32)
[2020-12-23] MEDS: folic acid 1 mg Tablet PO (08:32)
[2020-12-23] MEDS: clopidogrel 75 mg Tablet NG-TUBE (08:33)
[2020-12-23] MEDS: famotidine 20 mg/2 mL INJ IVP ×2 (08:33→21:35)
[2020-12-23] MEDS: LORazepam 2 mg/mL INJ 1 mL IM (08:49)
--- NOTE | 2020-12-23 08:56 | PM.PN ---
Subjective Subjective: Interval history: Reviewed nursing note reveals he has had additional seizure episodes overnight with gaze deviation. Appears to also have an facial twitching, and currently without gaze deviation, but does have intermittent/irregular facial twitch. He has not become alert. His other sister is at bedside today. Discussed with her concern regarding recurrent and possibly even ongoing seizure. We have requested EEG. We are also increasing dose of Keppra to 2000 twice daily, in addition discussed additional small doses of benzodiazepine which would be more helpful with alcohol withdrawal seizure while monitoring his respite status. The sister visiting here today also confirms the same with regards to him not wanting to have intubation. We discussed also the setting nature of these medications, risk of respiratory suppression, risk of aspiration, other complications, including at this time his elevated risk of mortality. Vitals/I&O/Wt Last Vital Signs Temp 99.3 F 12/23/20 04:00 Pulse 82 12/23/20 07:50 Resp 27 H 12/23/20 06:00 BP 147/75 12/23/20 06:00 Pulse Ox 96 12/23/20 07:50 12/22/20 12/23/20 12/23/20 22:59 06:59 14:59 Intake Total 50 / 160 1033.333 / 1193.333 Output Total 430 / 430 Balance 50 / 160 603.333 / 763.333 Weight last 48 hrs Weight 72.631 kg Weight 68.039 kg Physical Exam Const: COMMON NORMALS: no acute distress; negative for patient oriented x3 GENERAL APPEARANCE: lethargic (Occ moaning, not responding to voice, sternal rub. Moves extremities.) and frail appearing ORIENTATION/CONSCIOUSNESS: Yes patient obtunded and Yes lethargic (Occ moaning, not responding to voice, sternal rub. Moves extremities.) HENMT: COMMON NORMALS: oropharynx normal Neck/C-Spine: COMMON NORMALS: no JVD Resp: COMMON NORMALS: normal respiratory effort AUSCULTATION: rhonchi Cardio: COMMON NORMALS: no JVD, regular rhythm, S1 normal heart sound present, S2 normal heart sound present and No murmurs present (Cardio) RHYTHM: regular rhythm HEART SOUNDS: S1 normal heart sound present and S2 normal heart sound present GI: COMMON NORMALS: Normal to inspection, nondistended, normoactive bowel sounds present, Soft to palpation and non-tender PALPATION: Yes Soft to palpation Extremity: COMMON NORMALS: no joint enlargement and no pedal edema OTHER: Bruising around second, third toes of the left foot, fourth, fifth toes on the right foot. Neuro: COMMON NORMALS: moves all extremities; negative for patient oriented x3 SENSORIUM/ORIENTATION: Yes lethargic (Occ moaning, not responding to voice, sternal rub. Moves extremities.) and Yes obtunded MOTOR EXAM: Motor fasciculations not present and Abnormal muscle tone present hypertonic: all Right pupil size (mm): 2 Left pupil size (mm): 2 OTHER: Intermittent facial twitching, irregular Skin: GENERAL SKIN EXAM: ecchymosis OTHER: Nummular dermatitis lesions of feet, several abrasions on the lower legs. Abrasion of distal fourth toe medial to the nail. Urinary Catheter Management^: Ricardo: Cath Placed During This Visit: yes Reason for Continuing Indwelling Catheter: Accurate Measurement of Urinary Output in Critically Ill Patients Urinary Catheter Date of Insertion: 12/22/20 Urinary Catheter Time of Insertion: 12:57 Data : 12/23/20 04:35 12/23/20 04:35 Micro: Microbiology 12/22/20 14:05 Blood Culture - Preliminary Blood SPECIMEN COLLECTED 12/22/20 14:25 Blood Culture - Preliminary Blood SPECIMEN COLLECTED A&P Assessment and plan (1) Metabolic encephalopathy: He has not regained alertness since yesterday. Overnight noted to have additional episodes of gaze deviation, as well as absence of facial twitching. This morning does not appear to have gaze deviation, but does have intermittent facial twitches. Discussed with his sister concern for at least recurrence of seizures, and possibly even ongoing seizure as above. We are going to escalate therapy at this time, give him 2000 mg Keppra, as well as add additional doses of Versed in case of additional symptoms, with risk for monitoring given stated goals of care wishes. Obtain EEG. Continue other supportive care for alcohol withdrawal. Continue treatment of UTI. Resume some of his medications including gabapentin. TSH is normal. Check TSH. Minimal hyponatremia, doubt contributing. With history of heavy alcohol intake, known prior history of cirrhosis. The liver appears normal. Minimal hyponatremia, mild AST elevation, although chronicity unknown. Mild increase in liver parenchyma echogenicity, but no obvious cirrhosis. No ascites. Status: Acute (2) New onset seizure: As above. New seizures suspected secondary to alcohol withdrawal. Possibly withdrawal of medication. Escalate Keppra two thousand, additional benzodiazepine as tolerating depending on respiratory condition. Resume gabapentin. EEG. Once able to would benefit from MRI assessment. Status: Acute (3) Alcohol withdrawal: Benzodiazepines, supportive care, vitamin replacement as per [facility] protocol. Status: Acute (4) UTI (urinary tract infection): Continue Rocephin. Follow-up urine culture. No hydronephrosis on abdominal ultrasound. Status: Acute (5) Repeated falls: Secondary to metabolic encephalopathy, generalized weakness, alcohol withdrawal, UTI, will benefit from PT, OT once he is able to participate. Status: Acute (6) Difficulty walking: As above. Lives alone. Status: Acute Additional A&P Information Abrasion on lower extremities, fourth toe. Wound care. Bruising of third and fourth on the left and fourth and fifth toes on the right following several falls. X-ray not optimal quality, cannot exclude nondisplaced fracture of distal second right phalanx. CAD status post stenting: Continue cardiac meds. HTN HLD Reported history of CVA Cardiomyopathy COPD Current smoker Heavy alcohol intake Nummular exema Attestations Medical Necessity Statement*: Continue admission for assessment management of acute encephalopathy, recurrent seizures, alcohol withdrawal, UTI. Coding Level of Care Code Acute First Press Operator for [facility] Fwd Diagnoses Metabolic encephalopathy G93.41 New onset seizure R56.9 Alcohol withdrawal F10.239 UTI (urinary tract infection) N39.0 Repeated falls R29.6 Difficulty walking R26.2
--- NOTE | 2020-12-23 09:36 | PC.NURSE ---
2 mg of ativan scanned but only 0.25 mg given per drAlireza verbal orders.
[2020-12-23 10:08] LABS: Vitamin B12 305 pg/mL (232-1245)
[2020-12-23] MEDS: midazolam 1 mg/mL INJ 2 mL IVP ×2 (11:46→17:32)
[2020-12-23] MEDS: cefTRIAXone 2,000 MG in sodium chloride 0.9% (plus) 50 ML 100 MG IV ×2 (14:11→23:35)
[2020-12-23] MEDS: vancomycin 1,000 MG in sodium chloride 0.9% 250 ML 250 MG IV ×2 (14:13→23:37)
[2020-12-23] MEDS: ampicillin 2,000 MG in sodium chloride 0.9% (plus) 50 ML 100 MG IV ×3 (14:24→21:34)
[2020-12-23] MEDS: acyclovir 700 MG in sodium chloride 0.9% (100 ml) 100 ML 110 MG IV ×2 (14:24→21:53)
--- NOTE | 2020-12-23 15:53 | PC.NURSE ---
This shift patient has been non responsive to painful stimuli. Oxygen levels have stayed in high 90's. Patient has copious amounts of blood tinged secretions with no gag reflex present. Facial twitching has remained persistent.
--- NOTE | 2020-12-23 19:08 | PM.CONSULT ---
Providers/Reason For Consult Consulting Physician/Specialty*: lexie/ hospitalist Reason for Consult*: status epilepticus Attending Physician: Remy Greenwood Primary Care Provider: [facility] History of Present Illness History of Present Illness Pierce Bailey is a 75 year old male who is currently in focal status epilepticus. He is a severe alcoholic who stopped drinking alcohol couple of days ago. He can event 4 days ago to the emergency room complaining of weakness and not remembering to eat or take his medication. He was not febrile and his labs were unremarkable except his MCV was 109. His sodium was 130 and his AST was 83, consistent with his history of alcohol use. Nothing repairable could be found. Around that same time he stopped consuming alcohol and he was brought back with a focal seizure and decreased responsiveness yesterday.He was loaded with Keppra and given a dose of lorazepam and it was thought that he was doing better. Dr. Greenwood has been carlos about using benzodiazepines because the patient has a directive that he does not wish to be intubated. At baseline he has had trouble trying to take care of himself and has had to have a lot of help from his sister. Review of Systems General: Reports: ROS unobtainable due to mental status (He has not run a fever with max temp 100.) Meds/Allergies Home Medications and Allergies Home Medications Medication Instructions Recorded Confirmed Last Taken Type gabapentin 300 mg capsule 300 mg PO BID 10/19/19 12/22/20 12/20/20 History simvastatin 40 mg tablet 40 mg PO DAILY #90 tab 02/18/20 12/22/20 12/20/20 Rx losartan 50 mg tablet 50 mg PO DAILY #90 tab 08/18/20 12/22/20 Unknown Rx metoprolol tartrate 50 mg tablet 50 mg PO BID #180 tab 08/18/20 12/22/20 12/20/20 Rx albuterol sulfate [ProAir HFA] 2 puff INHALATION Q4H PRN 12/19/20 12/22/20 Unknown History clopidogrel 75 mg PO DAILY 12/19/20 12/22/20 12/20/20 History furosemide [Lasix] 20 mg PO DAILY 12/19/20 12/22/20 12/20/20 History naproxen sodium [Aleve] 220 - 440 mg PO PRN 12/19/20 12/22/20 Unknown History pantoprazole [Protonix] 40 mg PO DAILY 12/19/20 12/22/20 12/20/20 History tamsulosin [Flomax] 0.4 mg PO DAILY 12/19/20 12/22/20 12/19/20 History terbinafine HCl 1 applic TOPICAL BID 12/19/20 12/22/20 Unknown History aspirin [Aspir-81] 81 mg PO DAILY 12/22/20 12/22/20 12/20/20 History hydroxyzine HCl 10 mg PO QID PRN 12/22/20 12/22/20 Unknown History Allergies Allergy/AdvReac Type Severity Reaction Status Date / Time No Known Allergies Allergy Verified 12/19/20 16:34 Current Medications Current Medications Generic Name Dose Route Start Last Admin Trade Name Freq PRN Reason Stop Dose Admin Atorvastatin Calcium 20 mg 12/23/20 09:00 12/23/20 08:32 Atorvastatin 40 Mg Tablet NG-TUBE 20 mg DAILY VIVIAN Administration Clopidogrel Bisulfate 75 mg 12/23/20 09:00 12/23/20 08:33 Clopidogrel 75 Mg Tablet NG-TUBE 75 mg DAILY VIVIAN Administration Famotidine 20 mg 12/22/20 21:00 12/23/20 08:33 Famotidine 20 Mg/2 Ml Inj IVP 20 mg Q12H VIVIAN Administration Folic Acid 1 mg 12/23/20 09:00 12/23/20 08:32 Folic Acid 1 Mg Tablet PO 1 mg DAILY VIVIAN Administration Gabapentin 300 mg 12/22/20 21:00 12/23/20 08:32 Gabapentin 300 Mg Capsule NG-TUBE 300 mg BID@0900,2100 VIVIAN Administration Sodium Chloride 1,000 mls @ 100 mls/hr 12/22/20 17:38 12/23/20 16:56 Sodium Chloride 0.9% IV 100 mls/hr .Q10H VIVIAN Administration Levetiracetam 2,000 mg/ Sodium 120 mls @ 420 mls/hr 12/23/20 09:15 12/23/20 15:05 Chloride IV Infused Q12H VIVIAN Infusion Ceftriaxone Sodium 2,000 mg/ 50 mls @ 100 mls/hr 12/23/20 12:00 12/23/20 15:05 Sodium Chloride IV Infused Q12H VIVIAN Infusion Protocol Vancomycin HCl 1,000 mg/ 250 mls @ 250 mls/hr 12/23/20 12:00 12/23/20 17:27 Sodium Chloride IV Infused Q12H VIVIAN Infusion Protocol Ampicillin Sodium 2,000 mg/ 50 mls @ 100 mls/hr 12/23/20 13:00 12/23/20 17:26 Sodium Chloride IV Infused Q4H VIVIAN Infusion Protocol Acyclovir 700 mg/ Sodium 114 mls @ 110 mls/hr 12/23/20 12:30 12/23/20 16:58 Chloride IV Infused Q8H VIVIAN Infusion Lorazepam 2 mg 12/22/20 17:38 12/23/20 08:49 Lorazepam 2 Mg/Ml Inj 1 Ml IM 2 mg Q4H PRN Administration ALCOWD Protocol Lorazepam 2 mg 12/22/20 17:38 12/22/20 20:57 Lorazepam 2 Mg/Ml Inj 1 Ml IVP 2 mg PRN PRN Administration WITHDRAWAL Protocol Metoprolol Tartrate 12.5 mg 12/22/20 21:00 12/23/20 08:34 Metoprolol Tartrate 25 Mg Tablet NG-TUBE 12.5 mg BID@899,2099 VIVIAN Administration Midazolam HCl 1 mg 12/23/20 09:03 12/23/20 17:32 Midazolam 1 Mg/Ml Inj 2 Ml IVP 1 mg Q2H PRN Administration facial twitching Multivitamins Therapeutic 1 tab 12/23/20 09:00 12/23/20 08:32 Multivitamin Therapeutic Tablet PO 1 tab DAILY VIVIAN Administration Terbinafine HCl 1 applic 12/22/20 21:00 12/23/20 09:51 Terbinafine 1% Cream 15 Gm TOPICAL 1 applic VIVIAN Administration Thiamine Mononitrate 100 mg 12/23/20 09:00 12/23/20 08:32 Thiamine 100 Mg Tablet PO 100 mg DAILY VIVIAN Administration PFSH Acute PFSH: Medical History Alcohol abuse ASHD (arteriosclerotic heart disease) Cardiomyopathy COPD (chronic obstructive pulmonary disease) CVA (cerebral vascular accident) Dyslipidemia HTN (hypertension) Myocardial infarction Transaminitis Surgical History Stented coronary artery Social History Smoking and tobacco status: current every day smoker Alcohol intake: current Substance/Drug Use: never Caregiver/support person: Yes Lives independently: Yes Marital status: / service: Yes branch: [employer] Vitals/I&O/Wt Last Vital Signs Temp 100.1 F H 12/23/20 17:00 Pulse 92 12/23/20 18:00 Resp 20 H 12/23/20 18:00 BP 137/77 12/23/20 18:00 Pulse Ox 96 12/23/20 18:00 12/23/20 12/23/20 12/23/20 06:59 14:59 22:59 Intake Total 1033.333 / 2748.972 5892 / 1050 686 / 1736 Output Total 430 / 430 Balance 603.333 / 509.392 3051 / 1050 686 / 1736 Weight last 48 hrs Weight 160 lb 2 oz Weight 150 lb Physical Exam Narrative: EXAM NARRATIVE: General: He is actively having focal motor seizures with brief twitching of the head to the left, left facial contraction. I do not see involvement of his extremities. He is flaccid in all 4. He is making utterances associated with his tonic-clonic activity. Chest: Diffuse rhonchi. Cardiovascular: S1 and S2 normal without murmur or gallop. Abdomen nondistended. Liver is not palpable. Extremities: No deformities. Urinary Catheter Management^: Ricardo: Cath Placed During This Visit: yes Reason for Continuing Indwelling Catheter: Accurate Measurement of Urinary Output in Critically Ill Patients Urinary Catheter Date of Insertion: 12/22/20 Urinary Catheter Time of Insertion: 12:57 Data Micro: Micro: Microbiology 12/22/20 14:05 Blood Culture - Pr eliminary Blood NEGATIVE TO MARIANELA E 12/22/20 14:25 Blood Culture - Pr eliminary Blood NEGATIVE TO MARIANELA E A&P Assessment and plan (1) Epilepsia partialis continua, intractable epilepsy, pharmacoresistant: This gentleman has been in focal status epilepticus with impairments of consciousness for the last day and thus far has failed to respond to a fairly low dose of levetiracetam.Plan to load him with Cerebyx 20 mg/kg and if that is unsuccessful, increase Keppra 3000 mg to 4000 mg as needed. 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 His CT scan of the head from 12/22/2020 was unremarkable except for diffuse atrophy. Images were reviewed. He has not been febrile. Status: Acute (2) Alcohol withdrawal: It is not clear why he stopped drinking. Status: Acute (3) Generalized weakness: Progressive anemia and normal platelets suggesting hydration and possible GI blood loss rather than alcoholic bone marrow supression. His B12 was normal. He received thiamine. Status: Acute Coding Level of Care Code Acute Farm Reporter for [facility] Diagnoses Epilepsia partialis continua, intractable epilepsy, pharmacoresistant G40.119 Alcohol withdrawal F10.239 Generalized weakness R53.1
[2020-12-24] VITALS (47 sets, daily range): BP systolic 98–156; BP diastolic 53–115; PULSE 68–109; RESP 15–38; TEMP 36.5–37.3; O2SAT 92–100; BMI 26.2
[2020-12-24] MEDS: midazolam 1 mg/mL INJ 2 mL IVP ×2 (00:28→09:10)
[2020-12-24] MEDS: ampicillin 2,000 MG in sodium chloride 0.9% (plus) 50 ML 100 MG IV ×6 (00:31→20:17)
[2020-12-24] MEDS: terbinafine 1% Cream 15 gm 1 APPLIC TOPICAL ×3 (00:36→20:18)
[2020-12-24] MEDS: sodium chloride 0.9% 1,000 ML 100 ML IV (02:35)
--- NOTE | 2020-12-24 04:52 | PC.NURSE ---
SCDs Not Applied Patient has a small open wound on his left lower leg. Applying the SCDS would allow the patients wound to not properly heal.
[2020-12-24] MEDS: acyclovir 700 MG in sodium chloride 0.9% (100 ml) 100 ML 110 MG IV ×3 (04:59→23:02)
[2020-12-24 05:17] LABS: Basophils # 0.1 10^3/uL (0.0-0.1); Basophils % 0.6 %; Eosinophils # 0.1 10^3/uL (0.0-0.8); Eosinophils % 0.4 %; Hematocrit 26.1 % (42.0-52.0); Hemoglobin 8.4 g/dL (11.7-16.6); Lymphocytes # 0.7 10^3/uL (0.8-4.8); Lymphocytes % 5.7 %; Mean Corpuscular HGB Conc 32.2 g/dL (30.0-36.0); Mean Corpuscular Hemoglobin 37.8 pg (28.0-34.0); Mean Corpuscular Volume 117.6 fL (80-94); Mean Platelet Volume 9.7 fL (7.4-10.4); Monocytes # 1.8 10^3/uL (0.2-0.9); Monocytes % 15.8 %; Neutrophils # 8.97 10^3/uL (1.8-7.7); Neutrophils % 76.9 %; Nucleated Red Blood Cells % 0 %; Platelet Count 368 10^3/cmm (130-400); Red Blood Count 2.22 10^6/uL (4.1-5.3); Red Cell Distribution Width 14.7 % (12.1-15.1); White Blood Count 11.7 10^3/uL (4.0-10.0)
[2020-12-24 05:41] LABS: Alanine Aminotransferase 19 U/L (0-41); Albumin Level 3.4 g/dL (3.5-5.2); Alkaline Phosphatase 82 IU/L (40-130); Anion Gap 17.8 (5-19); Aspartate Amino Transferase 33 U/L (0-40); Blood Urea Nitrogen 9 mg/dL (8-23); Calcium 8.7 mg/dL (8.5-10.5); Carbon Dioxide 20 mmol/L (22-29); Chloride 108 mmol/L (98-107); Globulin 2.4 g/dL (1.3-4.6); Glucose 93 mg/dL (65-115); Osmolality Calculated 292 mOsm/kg (285-295); Potassium 3.8 mmol/L (3.5-5.1); Sodium 142 mmol/L (136-145); Total Bilirubin 0.2 mg/dL (0.15-1.2); Total Protein 5.8 g/dL (6.6-8.7)
--- NOTE | 2020-12-24 06:00 | XR_ITS ---
WS: [id number] Portable AP semiupright chest, 12/24/2020 Clinical Data: Hypoxia Comparison: Portable chest, 12/22/2020. Findings: The nasogastric tube remains in the same position with the sidehole at the gastroesophageal junction. There is right midlung calcification unchanged. No nodules, masses or effusions are seen. The heart is normal. The pulmonary vascularity is not increased. No pneumonia or pneumothorax is pres ent. There are monitor leads on the chest wall. XR/XR chest 1V portable [id number] Impression: 1. No change in chronic right midlung calcifications. 2. No change in position of nasogastric tube.
--- NOTE | 2020-12-24 06:18 | PC.NURSE ---
Shift Summary Patient is moaning occasionally but still gives no verbal response. He is alert and oriented x0. He has NS infusing in the left forearm IV site at 100 mls/hr. The right forearm IV site is saline locked. Patient is on 2 liters NC. Patient received a full linen change, bed bath, jarrett/catheter care, and oral care this evening. Patient continues to have secretions in the airway which are suctioned out with a yaunker and audible crackles can be heard upon entering the room. Ricardo catheter drained 1060 mls of clear dark yellow urine with some sediment. The patients eyes and mouth continued to twitch throughout the evening and the patient rarely opened his eyes all evening.
--- NOTE | 2020-12-24 08:55 | P.PN_ITS ---
Subjective Subjective: Interval history: He has remained in epilepsy partialis continua throughout the night. Vitals/I&O/Wt Last Vital Signs Temp 98.7 F 12/24/20 04:00 Pulse 86 12/24/20 06:00 Resp 28 H 12/24/20 06:00 BP 132/72 12/24/20 06:00 Pulse Ox 100 12/24/20 06:00 12/23/20 12/24/20 12/24/20 22:59 06:59 14:59 Intake Total 1100 / 2150 1479 / 3629 Output Total 1060 / 1060 Balance 1100 / 2150 419 / 2569 Weight last 48 hrs Weight 167 lb 9 oz Weight 160 lb 2 oz Weight 150 lb Physical Exam Narrative: EXAM NARRATIVE: He has clonic activity in the left face, left arm and left leg at a rate of 0.5 Hz. I was fairly sure that he had voluntary activity in the right upper extremity to command but he does not open his eyes. He is barely managing his secretions. Urinary Catheter Management^: Ricardo: Cath Placed During This Visit: yes Reason for Continuing Indwelling Catheter: Accurate Measurement of Urinary Output in Critically Ill Patients Urinary Catheter Date of Insertion: 12/22/20 Urinary Catheter Time of Insertion: 12:57 Data : 12/24/20 04:43 12/24/20 04:43 Micro: Microbiology 12/22/20 12:55 Urine Culture - Preliminary Urine,Clean Catch Enterococcus species 12/22/20 14:05 Blood Culture - Preliminary Blood NEGATIVE TO DATE 12/22/20 14:25 Blood Culture - Preliminary Blood NEGATIVE TO DATE A&P Assessment and plan (1) Epilepsia partialis continua, intractable epilepsy, pharmacoresistant: Discussed with Dr. Garcia. Plan in case this morning's Keppra to 3000 mg and if that fails, add lacosamide 300 mg IV. We could consider a Versed drip but he would need to be ready to be intubated and that is not an option. His prognosis is guarded. Because of his epilepsy partialis continua is most likely alcohol withdrawal. His EEG actually shows bilateral spike and wave activity, although not surprisingly, the majority is on the right with spread to the left. There is especially posterior left sided spread. Status: Acute Attestations Medical Necessity Statement*: Epilepsy partialis continua requiring continuous ICU stay and anticonvulsant therapy. 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
--- NOTE | 2020-12-24 09:04 | PM.MISC ---
Miscellaneous Note Purpose of Documentation: EEG Note: ORDERING PHYSICIAN: Remy Greenwood MD. REASON FOR STUDY: Epilepsy partialis continua. STUDY: This was a 21 channel digital electroencephalogram performed using the 10-20 international system of electrode placement. This study was performed at the bedside and the patient was unresponsive with gross left clonic activity. FINDINGS: There was spike and wave activity seen bilaterally. There was left frontal and left anterior temporal spike and wave as well as right parietal and bilateral occipital activity. In contrast to the physical findings, the epileptic discharges, which have a rate of 0.5 Hz, appear to be bilateral and fairly symmetric, although there is lateralization to the left frontal and right parietal regions. There appears to be diffuse cortical irritability. IMPRESSION: Abnormal EEG because of left frontal and right posterior epileptiform discharges that are regular at a rate of 120.5 Hz and seen without interruption throughout the tracing. Photic stimulation had no effect on the frequency of these events. Behaviorally, the patient was seen to have clonic jerks only on the left side but this study suggests bilateral involvement and multifocal involvement. Duration of EE.1
[2020-12-24] MEDS: metoprolol tartrate 25 mg Tablet 12.5 MG NG-TUBE ×2 (09:07→20:18)
[2020-12-24] MEDS: thiamine 100 mg Tablet PO (09:07)
[2020-12-24] MEDS: folic acid 1 mg Tablet PO (09:07)
[2020-12-24] MEDS: multivitamin therapeutic Tablet 1 TAB PO (09:08)
[2020-12-24] MEDS: atorvastatin 40 mg Tablet 20 MG NG-TUBE (09:08)
[2020-12-24] MEDS: clopidogrel 75 mg Tablet NG-TUBE (09:08)
[2020-12-24] MEDS: famotidine 20 mg/2 mL INJ IVP ×2 (09:08→20:18)
[2020-12-24] MEDS: gabapentin 300 mg Capsule NG-TUBE ×2 (09:10→20:18)
--- NOTE | 2020-12-24 09:53 | PC.CHAP ---
Pastoral Care Encounter/Spiritual Assessment Type of Contact [] Declined cover creaser visit [] Patient/Family/Request visit [] Outpatient visit [] Follow-up visit [] Physician referral [] Code/Alert [x] Routine visit [] Staff referral [] Actively dying [] Patient sleeping [] Family support [] [] Out of room [] Palliative care [] [x] Receiving care in room [] Pre-surgical visit [] Trauma [] Long length of stay [x] ICU visit [] Other: Relational/Emotional Strength [] Patient feels connected with others/family/visitors/staff [] Distress [] Loneliness/isolation [] Abandonment Spirituality of Patient [] Person of Amy [] Attends Cheondoism of their Amy [] Believes in Prayer [] Reads Bible or Yazdanism materials [] There are Spiritual issues to be addressed Sap Plant Maintenance Consultant Interventions [x] Prayer [] Active listening [] Non-anxious presence [] Spiritual/emotional support [] Crisis/trauma care [] Spiritual counseling [] Bereavement support [] Provided bereavement packet [] Provided Bible/devotional materials [] Provided toy/stuffed animal, coloring book to patient or family member [] Provided Communion [] Anointing/[place] [] Salvation [x] Completed spiritual assessment [] Other: Impact on Illness or Injury [] Angry [] Fearful [] Anxious [] Often cries [] Exhaustion [] Unable to work [] Unable to attend amish [] Unable to walk/stand [] Unable to read [] Unable to drive [] Unable to eat/drink [] Unable to sleep [] Unable to be with family [] Patient intubated [] Other: Summary Time spent with patient
--- NOTE | 2020-12-24 10:36 | PM.PN ---
Subjective Subjective: Interval history: Occasionally moaning, otherwise not alert, not following commands, not coughing up secretions. Twitching of the left side of his face, tensing left arm, left leg. Vitals/I&O/Wt Last Vital Signs Temp 98.8 F 12/24/20 07:30 Pulse 81 12/24/20 09:30 Resp 21 H 12/24/20 09:30 BP 149/71 12/24/20 09:30 Pulse Ox 97 12/24/20 09:30 12/23/20 12/24/20 12/24/20 22:59 06:59 14:59 Intake Total 1100 / 2150 1479 / 3629 50 / 50 Output Total 1060 / 1060 Balance 1100 / 2150 419 / 2569 50 / 50 Weight last 48 hrs Weight 76.005 kg Weight 72.631 kg Weight 68.039 kg Physical Exam Const: COMMON NORMALS: no acute distress; negative for patient oriented x3 GENERAL APPEARANCE: lethargic (Not responding to voice, some response to pain. ) and frail appearing ORIENTATION/CONSCIOUSNESS: Yes lethargic (Not responding to voice, some response to pain. ) HENMT: COMMON NORMALS: oropharynx normal Neck/C-Spine: COMMON NORMALS: no JVD Resp: COMMON NORMALS: normal respiratory effort AUSCULTATION: rhonchi Cardio: COMMON NORMALS: no JVD, regular rhythm, S1 normal heart sound present, S2 normal heart sound present and No murmurs present (Cardio) RHYTHM: regular rhythm HEART SOUNDS: S1 normal heart sound present and S2 normal heart sound present GI: COMMON NORMALS: Normal to inspection, nondistended, normoactive bowel sounds present, Soft to palpation and non-tender PALPATION: Yes Soft to palpation Extremity: COMMON NORMALS: no joint enlargement and no pedal edema Neuro: COMMON NORMALS: moves all extremities; negative for patient oriented x3 SENSORIUM/ORIENTATION: Yes lethargic (Not responding to voice, some response to pain. ) and Yes obtunded MOTOR EXAM: Motor fasciculations not present and Abnormal muscle tone present hypertonic: all Skin: GENERAL SKIN EXAM: ecchymosis Urinary Catheter Management^: Ricardo: Cath Placed During This Visit: yes Reason for Continuing Indwelling Catheter: Accurate Measurement of Urinary Output in Critically Ill Patients Urinary Catheter Date of Insertion: 12/22/20 Urinary Catheter Time of Insertion: 12:57 Data : 12/24/20 04:43 12/24/20 04:43 Micro: Microbiology 12/22/20 12:55 Urine Culture - Preliminary Urine,Clean Catch Enterococcus species 12/22/20 14:05 Blood Culture - Preliminary Blood NEGATIVE TO DATE 12/22/20 14:25 Blood Culture - Preliminary Blood NEGATIVE TO DATE A&P Assessment and plan (1) Metabolic encephalopathy: Treat seizure as below. Continue treatment of severe alcohol withdrawal. Continues n.p.o. Continue oral, nasopharyngeal suctioning as needed. Continue treatment of UTI. Resumed some of his medications including gabapentin. TSH is normal. Minimal hyponatremia, doubt contributing. With history of heavy alcohol intake, known prior history of cirrhosis. The liver appears normal. Minimal hyponatremia, mild AST elevation, although chronicity unknown. Mild increase in liver parenchyma echogenicity, but no obvious cirrhosis. No ascites. Sister reports some memory loss for about a month, but much worse and with progressive confusion for about a week. Status: Acute (2) New onset seizure: Appreciate neurology assistance with recurrent/persistent seizure. Did not appear to responded to fosphenytoin last night. Continue with Versed, escalate to 2 mg every 2 hours, and may escalate further depending on respiratory status as he does have unprotected airway. Continue empiric antibiotics although lower suspicion for MONORAIL CRANE OPERATOR infection. Once able to would benefit from MRI assessment. Discussed with his sister Génesis. Status: Acute (3) Alcohol withdrawal: Benzodiazepines, supportive care, vitamin replacement as per [facility] protocol. Status: Acute (4) UTI (urinary tract infection): Continue vancomycin. Enterococcus species. Follow-up urine culture. No hydronephrosis on abdominal ultrasound. Status: Acute (5) Repeated falls: Secondary to metabolic encephalopathy, generalized weakness, alcohol withdrawal, UTI, will benefit from PT, OT once he is able to participate. Consider states he stayed on the floor for 3-4 hours after one of the poles until he was found. Will check CK. Has been receiving IVF until this morning, held for now as he is significantly positive balance due over the infusions. Status: Acute (6) Difficulty walking: As above. Lives alone. Status: Acute Attestations Medical Necessity Statement*: Requires continued ICU level care due to recurrent/persistent seizure, encephalopathy, severe alcohol withdrawal. Critical Care Time: In addition to noncritical issues 35 minutes critical care time spent on assessment management of immediately life-threatening issues including recurrent/persistent seizure, assessment of mental status, respiratory, airway protection, escalation of seizure therapy. Discussed with neurology, nursing. Discussed with family. Coding Level of Care Code Acute Sales Recruitment Specialist for [facility] F[facility] Exam Comprehensive Diagnoses Metabolic encephalopathy G93.41 New onset seizure R56.9 Alcohol withdrawal F10.239 UTI (urinary tract infection) N39.0 Repeated falls R29.6 Difficulty walking R26.2
[2020-12-24 11:26] LABS: Creatine Phosphokinase 187 U/L (39-308)
[2020-12-24] MEDS: midazolam 1 mg/mL INJ 2 mL 2 MG IVP ×2 (13:09→15:52)
[2020-12-24] MEDS: cefTRIAXone 2,000 MG in sodium chloride 0.9% (plus) 50 ML 100 MG IV ×2 (13:09→23:03)
[2020-12-24] MEDS: vancomycin 1,000 MG in sodium chloride 0.9% 250 ML 250 MG IV (13:10)
--- NOTE | 2020-12-24 13:58 | PC.NURSE ---
Called to room by primary nurse to assess laosamide infiltration. Called pharmacy and spoke with Eulalio, no specific treatment recommended per [facility]. Eulalio called back to confirm that he spoke with drug company and they do not have any specific recommendations for treatment of infiltration. Will elevate and continue to monitor.
--- NOTE | 2020-12-24 14:12 | PC.NURSE ---
Lacosamide infiltrated in IV in right forearm. Pharmacy was called and notified. See other note. IV was removed, arm was elevated and warm blanket was applied. Area around site is red and bruising is noted.
--- NOTE | 2020-12-24 14:40 | PC.NURSE ---
Medications late due to limited IV access.
--- NOTE | 2020-12-24 15:33 | PC.RESP ---
SMOKING CESSATION AND PULMONARY REHAB INFORMATION SENT TO PATIENT.
[2020-12-24] MEDS: lacosamide 200 MG in sodium chloride 0.9% 50 ML 120 MG IV (20:43)
[2020-12-24 23:38] LABS: Vancomycin Trough 17.8 ug/mL (10-15)
[2020-12-25] VITALS (42 sets, daily range): BP systolic 101–153; BP diastolic 52–100; PULSE 83–124; RESP 18–43; TEMP 36.8–37; O2SAT 92–100; BMI 26.2
[2020-12-25] MEDS: midazolam 1 mg/mL INJ 2 mL 2 MG IVP ×4 (00:05→18:08)
[2020-12-25] MEDS: ampicillin 2,000 MG in sodium chloride 0.9% (plus) 50 ML 100 MG IV ×6 (00:59→21:26)
[2020-12-25] MEDS: vancomycin 1,000 MG in sodium chloride 0.9% 250 ML 250 MG IV ×2 (01:01→11:53)
[2020-12-25 05:23] LABS: Basophils # 0.1 10^3/uL (0.0-0.1); Basophils % 0.9 %; Eosinophils # 0.2 10^3/uL (0.0-0.8); Eosinophils % 1.2 %; Hematocrit 25.7 % (42.0-52.0); Hemoglobin 8.1 g/dL (11.7-16.6); Lymphocytes # 0.7 10^3/uL (0.8-4.8); Lymphocytes % 5.5 %; Mean Corpuscular HGB Conc 31.5 g/dL (30.0-36.0); Mean Corpuscular Volume 120.7 fL (80-94); Mean Platelet Volume 9.8 fL (7.4-10.4); Monocytes # 1.8 10^3/uL (0.2-0.9); Monocytes % 13.9 %; Neutrophils # 9.99 10^3/uL (1.8-7.7); Neutrophils % 77.8 %; Nucleated Red Blood Cells % 0 %; Platelet Count 368 10^3/cmm (130-400); Red Blood Count 2.13 10^6/uL (4.1-5.3); Red Cell Distribution Width 14.6 % (12.1-15.1); White Blood Count 12.9 10^3/uL (4.0-10.0)
[2020-12-25 05:40] LABS: Alanine Aminotransferase 21 U/L (0-41); Albumin Level 3.1 g/dL (3.5-5.2); Alkaline Phosphatase 72 IU/L (40-130); Anion Gap 21.5 (5-19); Aspartate Amino Transferase 38 U/L (0-40); Blood Urea Nitrogen 10 mg/dL (8-23); Calcium 8.7 mg/dL (8.5-10.5); Carbon Dioxide 18 mmol/L (22-29); Chloride 112 mmol/L (98-107); Globulin 2.3 g/dL (1.3-4.6); Glucose 74 mg/dL (65-115); Osmolality Calculated 304 mOsm/kg (285-295); Potassium 3.5 mmol/L (3.5-5.1); Sodium 148 mmol/L (136-145); Total Bilirubin 0.2 mg/dL (0.15-1.2); Total Protein 5.4 g/dL (6.6-8.7)
[2020-12-25 05:45] LABS: Magnesium 1.9 mg/dL (1.7-2.3)
[2020-12-25] MEDS: acyclovir 700 MG in sodium chloride 0.9% (100 ml) 100 ML 110 MG IV ×3 (06:26→22:55)
--- NOTE | 2020-12-25 08:26 | PC.CHAP ---
Pastoral Care Encounter/Spiritual Assessment Type of Contact [] Declined shield runner visit [] Patient/Family/Request visit [] Outpatient visit [] Follow-up visit [] Physician referral [] Code/Alert [x] Routine visit [] Staff referral [] Actively dying [] Patient sleeping [] Family support [] [] Out of room [] Palliative care [] [] Receiving care in room [] Pre-surgical visit [] Trauma [] Long length of stay [x] ICU visit [x] Other: ventilator Relational/Emotional Strength [] Patient feels connected with others/family/visitors/staff [] Distress [] Loneliness/isolation [] Abandonment Spirituality of Patient [] Person of Amy [] Attends Episcopalian of their Amy [] Believes in Prayer [] Reads Bible or Orthodox materials [] There are Spiritual issues to be addressed Compliance Project Manager Interventions [x] Prayer [] Active listening [] Non-anxious presence [] Spiritual/emotional support [] Crisis/trauma care [] Spiritual counseling [] Bereavement support [] Provided bereavement packet [] Provided Bible/devotional materials [] Provided toy/stuffed animal, coloring book to patient or family member [] Provided Communion [] Anointing/[place] [] Salvation [x] Completed spiritual assessment [] Other: Impact on Illness or Injury [] Angry [] Fearful [] Anxious [] Often cries [] Exhaustion [] Unable to work [] Unable to attend muslim [] Unable to walk/stand [] Unable to read [] Unable to drive [] Unable to eat/drink [] Unable to sleep [] Unable to be with family [] Patient intubated [] Other: Summary Time spent with patient
[2020-12-25] MEDS: famotidine 20 mg/2 mL INJ IVP ×2 (09:05→21:26)
[2020-12-25] MEDS: atorvastatin 40 mg Tablet 20 MG NG-TUBE (09:05)
[2020-12-25] MEDS: clopidogrel 75 mg Tablet NG-TUBE (09:05)
[2020-12-25] MEDS: folic acid 1 mg Tablet PO (09:05)
[2020-12-25] MEDS: thiamine 100 mg Tablet PO (09:06)
[2020-12-25] MEDS: metoprolol tartrate 25 mg Tablet 12.5 MG NG-TUBE ×2 (09:06→21:26)
[2020-12-25] MEDS: terbinafine 1% Cream 15 gm 1 APPLIC TOPICAL ×2 (09:06→21:28)
[2020-12-25] MEDS: gabapentin 300 mg Capsule NG-TUBE ×2 (09:06→21:26)
[2020-12-25] MEDS: multivitamin therapeutic Tablet 1 TAB PO (09:06)
--- NOTE | 2020-12-25 09:46 | P.PN_ITS ---
Subjective Subjective: Interval history: He still lethargic/obtunded, however, today slightly more responsive, does appear to open his eyes to pain. Does not follow commands. Does appear to open his eyes to voice as well. Twitching not appreciable while he was asleep, upon opening his eyes, sometime after intermittent twitches resume, however, he had significantly lower intensity. Vitals/I&O/Wt Last Vital Signs Temp 98.2 F 12/25/20 04:13 Pulse 110 H 12/25/20 09:29 Resp 23 H 12/25/20 06:00 BP 132/61 12/25/20 06:00 Pulse Ox 99 12/25/20 09:29 12/24/20 12/25/20 12/25/20 22:59 06:59 14:59 Intake Total 849.167 / 949.167 644 / 1593.167 Output Total 700 / 700 600 / 1300 Balance 149.167 / 249.167 44 / 293.167 Weight last 48 hrs Weight 75.807 kg Weight 76.005 kg Physical Exam Narrative: EXAM NARRATIVE: Sister at bedside. Const: COMMON NORMALS: no acute distress; negative for patient oriented x3 GENERAL APPEARANCE: lethargic (Not responding to voice, response to pain. Opens eyes.) and frail appearing ORIENTATION/CONSCIOUSNESS: Yes lethargic (Not responding to voice, response to pain. Opens eyes.) HENMT: COMMON NORMALS: oropharynx normal Neck/C-Spine: COMMON NORMALS: no JVD Resp: COMMON NORMALS: normal respiratory effort AUSCULTATION: rhonchi Cardio: COMMON NORMALS: no JVD, regular rhythm, S1 normal heart sound present, S2 normal heart sound present and No murmurs present (Cardio) RHYTHM: regular rhythm HEART SOUNDS: S1 normal heart sound present and S2 normal heart sound present GI: COMMON NORMALS: Normal to inspection, nondistended, normoactive bowel sounds present, Soft to palpation and non-tender PALPATION: Yes Soft to palpation Extremity: COMMON NORMALS: no joint enlargement and no pedal edema Neuro: COMMON NORMALS: moves all extremities; negative for patient oriented x3 SENSORIUM/ORIENTATION: Yes lethargic (Not responding to voice, response to pain. Opens eyes.) and Yes obtunded MOTOR EXAM: Motor fasciculations not present and Abnormal muscle tone present hypertonic: all Skin: GENERAL SKIN EXAM: ecchymosis Urinary Catheter Management^: Ricardo: Cath Placed During This Visit: yes Reason for Continuing Indwelling Catheter: Accurate Measurement of Urinary Output in Critically Ill Patients Urinary Catheter Date of Insertion: 12/22/20 Urinary Catheter Time of Insertion: 12:57 Data : 12/25/20 04:39 12/25/20 04:39 Micro: Microbiology 12/22/20 12:55 Urine Culture - Preliminary Urine,Clean Catch Enterococcus species A&P Assessment and plan (1) Metabolic encephalopathy: Treat seizure as below. Continue treatment of severe alcohol withdrawal. Continues n.p.o. Continue oral, nasopharyngeal suctioning as needed. Continue treatment of UTI. Resumed some of his medications including gabapentin. TSH is normal. Minimal hyponatremia, doubt contributing. With history of heavy alcohol intake, known prior history of cirrhosis. The liver appears normal. Minimal hyponatremia, mild AST elevation, although ch ronicity unknown. Mild increase in liver parenchyma echogenicity, but no obvious cirrhosis. No ascites. Sister reports some memory loss for about a month, but much worse and with progressive confusion for about a week. Status: Acute (2) New onset seizure: Multifocal recurrent/persistent seizures. As he has shown some improvement this morning, yesterday having received lacosamide as well as transiently had him on Versed drip for 5-6 hours. Without twitching noted initially on the exam this morning. Appears to open his eyes to pain and to voice as well. Not following commands. Not clearing his airway spontaneously. Twitching resumed on the lower amplitude/rate after opening his eyes. Appreciate neurology assistance, will increase Lacosamide to 300mg BID, additional 1000mg keppra this morning and increase to 4000mg BID. Continue Versed. Depending on respiratory status will consider again short duration versed drip. Did not appear to responded to fosphenytoin. Continue empiric antibiotics although lower suspicion for OPERATIONS VOCATIONAL INSTRUCTOR infection. Once able to would benefit from MRI assessment. Discussed with his sister Génesis. Status: Acute (3) Alcohol withdrawal: Benzodiazepines, supportive care, vitamin replacement as per [facility] protocol. Status: Acute (4) UTI (urinary tract infection): Continue vancomycin. Enterococcus species. Follow-up urine culture. No hydronephrosis on abdominal ultrasound. Status: Acute (5) Repeated falls: Secondary to metabolic encephalopathy, generalized weakness, alcohol withdrawal, UTI, will benefit from PT, OT once he is able to participate. Consider states he stayed on the floor for 3-4 hours after one of the poles until he was found. Will check CK. Has been receiving IVF until this morning, held for now as he is significantly positive balance due over the infusions. Status: Acute (6) Difficulty walking: As above. Lives alone. Status: Acute Attestations Medical Necessity Statement*: Continue treatment of multifocal recurrent/persistent seizures/status epilepticus, acute encephalopathy, severe alcohol withdrawal, UTI. Coding Level of Care Code Acute Drier Tender Naphthalene for g Fwd Exam Comprehensive Diagnoses Metabolic encephalopathy G93.41 New onset seizure R56.9 Alcohol withdrawal F10.239 UTI (urinary tract infection) N39.0 Repeated falls R29.6 Difficulty walking R26.2
--- NOTE | 2020-12-25 11:07 | PC.SOCIAL ---
Pg 2 IMM Explained to pt's sister Marshall, Pg 2 IMM. No questions voiced. Provided her a copy. Signed, dated, & timed a copy & placed in chart.
--- NOTE | 2020-12-25 12:15 | PC.NUTR ---
Nutrition reassessment: Pt noted to be on Clear liquid diet, however per nursing and MD report, is unable to consume oral diet at this time. Recommend to clarify diet orders to NPO at this time. See RD assessment for further details.
[2020-12-25] MEDS: cefTRIAXone 2,000 MG in sodium chloride 0.9% (plus) 50 ML 100 MG IV (12:21)
[2020-12-26] VITALS (70 sets, daily range): BP systolic 104–147; BP diastolic 57–87; PULSE 87–141; RESP 11–49; TEMP 36.4–36.8; O2SAT 71–100
[2020-12-26] MEDS: cefTRIAXone 2,000 MG in sodium chloride 0.9% (plus) 50 ML 100 MG IV (00:22)
[2020-12-26] MEDS: vancomycin 1,000 MG in sodium chloride 0.9% 250 ML 250 MG IV (00:24)
[2020-12-26] MEDS: ampicillin 2,000 MG in sodium chloride 0.9% (plus) 50 ML 100 MG IV ×6 (01:19→21:27)
[2020-12-26] MEDS: midazolam 1 mg/mL INJ 2 mL 2 MG IVP ×3 (02:52→09:07)
[2020-12-26 04:47] LABS: Basophils # 0.1 10^3/uL (0.0-0.1); Basophils % 0.9 %; Eosinophils % 0.1 %; Hematocrit 26.6 % (42.0-52.0); Hemoglobin 8.4 g/dL (11.7-16.6); Lymphocytes # 0.6 10^3/uL (0.8-4.8); Mean Corpuscular HGB Conc 31.6 g/dL (30.0-36.0); Mean Corpuscular Hemoglobin 38.4 pg (28.0-34.0); Mean Corpuscular Volume 121.5 fL (80-94); Mean Platelet Volume 9.8 fL (7.4-10.4); Monocytes # 1.9 10^3/uL (0.2-0.9); Monocytes % 13.4 %; Neutrophils # 11.33 10^3/uL (1.8-7.7); Neutrophils % 80.6 %; Nucleated Red Blood Cells % 0 %; Platelet Count 384 10^3/cmm (130-400); Red Blood Count 2.19 10^6/uL (4.1-5.3); Red Cell Distribution Width 14.8 % (12.1-15.1); White Blood Count 14.1 10^3/uL (4.0-10.0)
[2020-12-26 05:07] LABS: Alanine Aminotransferase 22 U/L (0-41); Albumin Level 2.9 g/dL (3.5-5.2); Alkaline Phosphatase 78 IU/L (40-130); Anion Gap 18.6 (5-19); Aspartate Amino Transferase 38 U/L (0-40); Blood Urea Nitrogen 14 mg/dL (8-23); Carbon Dioxide 20 mmol/L (22-29); Chloride 117 mmol/L (98-107); Globulin 2.8 g/dL (1.3-4.6); Glucose 102 mg/dL (65-115); Osmolality Calculated 315 mOsm/kg (285-295); Potassium 3.6 mmol/L (3.5-5.1); Sodium 152 mmol/L (136-145); Total Bilirubin 0.2 mg/dL (0.15-1.2); Total Protein 5.7 g/dL (6.6-8.7)
--- NOTE | 2020-12-26 05:26 | PC.NURSE ---
Shift Summary Patient is not doing well, he is requiring a lot of oral suctioning that is deep almost NT suctioning due to the copious amounts of oral secretions he is having. Patient withdrawals to pain and occasionally opens his eyes to a lot of stimulation. Patient had a seizure like activity at one point in time in the night where his heart rate jumped to 140s and had to give him a dose of versed which helped. Patient keeps having multiple moments throughout the night where he de-sated to the low 80s and was really difficult to get his o2 sats back up, with turning, suctioning and increasing his oxygen.
[2020-12-26] MEDS: acyclovir 700 MG in sodium chloride 0.9% (100 ml) 100 ML 110 MG IV (06:19)
[2020-12-26] MEDS: clopidogrel 75 mg Tablet NG-TUBE (08:20)
[2020-12-26] MEDS: folic acid 1 mg Tablet PO (08:20)
[2020-12-26] MEDS: atorvastatin 40 mg Tablet 20 MG NG-TUBE (08:20)
[2020-12-26] MEDS: multivitamin therapeutic Tablet 1 TAB PO (08:20)
[2020-12-26] MEDS: gabapentin 300 mg Capsule NG-TUBE ×2 (08:21→21:26)
[2020-12-26] MEDS: famotidine 20 mg/2 mL INJ IVP ×2 (08:21→21:27)
[2020-12-26] MEDS: terbinafine 1% Cream 15 gm 1 APPLIC TOPICAL ×2 (08:51→21:27)
[2020-12-26] MEDS: thiamine 100 mg Tablet PO (08:51)
[2020-12-26] MEDS: metoprolol tartrate 25 mg Tablet 12.5 MG NG-TUBE ×2 (08:51→21:26)
--- NOTE | 2020-12-26 09:37 | PM.PN ---
Subjective Subjective: Interval history: This morning he is obtunded. Reportedly required very frequent suctioning overnight. Not protecting airway. Does not appear to have twitching. Overnight did have an episode of tachycardia, and suspected seizure episode, currently I do not see facial twitching. Yesterday was showing response to pain, opening his eyes. I do not see this today. Vitals/I&O/Wt Last Vital Signs Temp 98.1 F 12/26/20 04:00 Pulse 114 H 12/26/20 08:30 Resp 24 H 12/26/20 08:30 BP 122/76 12/26/20 08:30 Pulse Ox 95 12/26/20 08:30 12/25/20 12/26/20 12/26/20 22:59 06:59 14:59 Intake Total 334 / 1220 734 / 1954 364 / 364 Output Total 475 / 475 Balance 334 / 1220 259 / 1479 364 / 364 Weight last 48 hrs Weight 79.4 kg Weight 75.807 kg Physical Exam Const: COMMON NORMALS: no acute distress; negative for patient oriented x3 GENERAL APPEARANCE: frail appearing ORIENTATION/CONSCIOUSNESS: Yes patient obtunded HENMT: COMMON NORMALS: oropharynx normal Neck/C-Spine: COMMON NORMALS: no JVD Resp: COMMON NORMALS: normal respiratory effort AUSCULTATION: rhonchi Cardio: COMMON NORMALS: no JVD, regular rhythm, S1 normal heart sound present, S2 normal heart sound present and No murmurs present (Cardio) RHYTHM: regular rhythm HEART SOUNDS: S1 normal heart sound present and S2 normal heart sound present GI: COMMON NORMALS: Normal to inspection, nondistended, normoactive bowel sounds present, Soft to palpation and non-tender PALPATION: Yes Soft to palpation Extremity: COMMON NORMALS: no joint enlargement and no pedal edema Neuro: COMMON NORMALS: moves all extremities; negative for patient oriented x3 SENSORIUM/ORIENTATION: Yes obtunded MOTOR EXAM: Motor fasciculations not present and Abnormal muscle tone present hypertonic: all Skin: GENERAL SKIN EXAM: ecchymosis Urinary Catheter Management^: Ricardo: Cath Placed During This Visit: yes Reason for Continuing Indwelling Catheter: Accurate Measurement of Urinary Output in Critically Ill Patients Urinary Catheter Date of Insertion: 12/22/20 Urinary Catheter Time of Insertion: 12:57 Data : 12/26/20 04:12/26/20 04:06 Micro: Microbiology 12/22/20 12:55 Urine Culture - Final Urine,Clean Catch Enterococcus faecalis A&P Assessment and plan (1) Metabolic encephalopathy: Suspected episode of seizure overnight reportedly improved with Versed, however, given obtundation today, worsening mental status, not opening his eyes not responding to pain I suspect he has ongoing seizure. As per discussion with neurology we will continue with high-dose Keppra, Vimpat. Continue Versed. As he appeared to have responded well to Versed drip day before yesterday, but subsequent worsening again, will depending on respiratory status additionally restart Versed drip today. LP considered, on consensus with neurology, likely would have leukocytosis secondary to seizures, and for now will continue empiric antibiotics, and continued high-dose antiseizure medications in attempts to break the seizures. Continues n.p.o. Continue oral, nasopharyngeal suctioning as needed. Continue treatment of UTI. Resumed some of his medications including gabapentin. TSH is normal. Hyponatremia resolved, currently hypernatremic. Discussed with pharmacy will switch over infusion fluid to D5W and his drips, except for ampicillin as that would also give significant volume increase. Monitor sodium. With history of heavy alcohol intake, no known cirrhosis. The liver appears normal. Minimal hyponatremia, mild AST elevation, although chronicity unknown. Mild increase in liver parenchyma echogenicity, but no obvious cirrhosis. No ascites. Sister reports some memory loss for about a month, but much worse and with progressive confusion for about a week. Status: Acute (2) New onset seizure: Again cautious trial of Versed drip. Continue high doses of Keppra, is to increase to 4000 twice daily, lacosamide, 200 mg twice daily. Did not responded to fosphenytoin. Continue empiric antibiotics although lower suspicion for PSYCH COORDINATOR infection. Once able to would benefit from MRI assessment. Discussed with his sister Génesis. Status: Acute (3) Alcohol withdrawal: Benzodiazepines, supportive care, vitamin replacement as per [facility] protocol. Status: Acute (4) UTI (urinary tract infection): Continue vancomycin. Enterococcus species. Follow-up urine culture. No hydronephrosis on abdominal ultrasound. Status: Acute (5) Repeated falls: Secondary to metabolic encephalopathy, generalized weakness, alcohol withdrawal, UTI, will benefit from PT, OT once he is able to participate. Consider states he stayed on the floor for 3-4 hours after one of the poles until he was found. Will check CK. Has been receiving IVF until this morning, held for now as he is significantly positive balance due over the infusions. Status: Acute (6) Difficulty walking: As above. Lives alone. Status: Acute Additional A&P Information Acute hypernatremia: Switch infusions except ampicillin to D5 base fluid. Monitor sodium. Attestations Medical Necessity Statement*: Continue assess management of encephalopathy, severe alcohol withdrawal with seizures. Coding Level of Care Code Acute Inventory Controller for [facility] Fwd Diagnoses Metabolic encephalopathy G93.41 New onset seizure R56.9 Alcohol withdrawal F10.239 UTI (urinary tract infection) N39.0 Repeated falls R29.6 Difficulty walking R26.2
[2020-12-26 11:01] LABS: Ammonia 21 umol/L (16-60)
--- NOTE | 2020-12-26 17:13 | PC.NURSE ---
Received phone call from Dr. Greenwood who wanted an update on patient. Dr. Greenwood stated to stop versed infusion at 1900. Overnight nurse may using versed IVP as ordered.
--- NOTE | 2020-12-26 19:03 | PC.NURSE ---
23 ml versed infused. Infusion stopped at 1900.
[2020-12-27] VITALS (53 sets, daily range): BP systolic 104–139; BP diastolic 62–105; PULSE 83–117; RESP 17–39; TEMP 36.1–36.9; O2SAT 84–100
[2020-12-27] MEDS: ampicillin 2,000 MG in sodium chloride 0.9% (plus) 50 ML 100 MG IV ×3 (00:35→08:09)
[2020-12-27 04:42] LABS: Basophils # 0.1 10^3/uL (0.0-0.1); Basophils % 0.8 %; Eosinophils # 0.1 10^3/uL (0.0-0.8); Eosinophils % 0.8 %; Hematocrit 25.1 % (42.0-52.0); Lymphocytes # 0.5 10^3/uL (0.8-4.8); Lymphocytes % 3.8 %; Mean Corpuscular HGB Conc 31.9 g/dL (30.0-36.0); Mean Corpuscular Hemoglobin 38.8 pg (28.0-34.0); Mean Corpuscular Volume 121.8 fL (80-94); Mean Platelet Volume 10.1 fL (7.4-10.4); Monocytes # 1.5 10^3/uL (0.2-0.9); Monocytes % 10.2 %; Neutrophils # 11.83 10^3/uL (1.8-7.7); Neutrophils % 82.6 %; Nucleated Red Blood Cells % 0 %; Platelet Count 375 10^3/cmm (130-400); Red Blood Count 2.06 10^6/uL (4.1-5.3); White Blood Count 14.3 10^3/uL (4.0-10.0)
[2020-12-27 05:00] LABS: Alanine Aminotransferase 19 U/L (0-41); Albumin Level 2.5 g/dL (3.5-5.2); Alkaline Phosphatase 72 IU/L (40-130); Blood Urea Nitrogen 16 mg/dL (8-23); Calcium 8.7 mg/dL (8.5-10.5); Carbon Dioxide 23 mmol/L (22-29); Chloride 116 mmol/L (98-107); Globulin 2.8 g/dL (1.3-4.6); Glucose 165 mg/dL (65-115); Osmolality Calculated 315 mOsm/kg (285-295); Sodium 150 mmol/L (136-145); Total Bilirubin 0.2 mg/dL (0.15-1.2); Total Protein 5.3 g/dL (6.6-8.7)
[2020-12-27 05:06] LABS: Anion Gap 14.1 (5-19); Aspartate Amino Transferase 32 U/L (0-40); Potassium 3.1 mmol/L (3.5-5.1)
--- NOTE | 2020-12-27 05:32 | PC.NURSE ---
Shift Summary Patient still having a hard time with secretions, having a hard time keeping his o2 sats up, He is still unresponsive, only opens eyes during repositions, and responds to painful stimuli. Has not had any more seizure like activity since the versed drip has been turned off at 1900. His family is waiting for him to wake up. He is still not having great urine output and had some random hematurea last night that is resolving now. He is getting a lot more swollen at this time and may need to be diuresed.
[2020-12-27] MEDS: famotidine 20 mg/2 mL INJ IVP ×2 (08:06→20:57)
[2020-12-27] MEDS: thiamine 100 mg Tablet PO (08:07)
[2020-12-27] MEDS: folic acid 1 mg Tablet PO (08:07)
[2020-12-27] MEDS: multivitamin therapeutic Tablet 1 TAB PO (08:07)
[2020-12-27] MEDS: gabapentin 300 mg Capsule NG-TUBE ×2 (08:07→20:57)
[2020-12-27] MEDS: atorvastatin 40 mg Tablet 20 MG NG-TUBE (08:07)
[2020-12-27] MEDS: clopidogrel 75 mg Tablet NG-TUBE (08:07)
[2020-12-27] MEDS: metoprolol tartrate 25 mg Tablet 12.5 MG NG-TUBE ×2 (08:07→20:57)
[2020-12-27] MEDS: terbinafine 1% Cream 15 gm 1 APPLIC TOPICAL ×2 (08:20→20:57)
[2020-12-27] MEDS: potassium chloride premix 100 ML 25 MEQ IV (09:11)
[2020-12-27] MEDS: FUROsemide 10 mg/mL SDV 2mL 20 MG IVP (09:13)
--- NOTE | 2020-12-27 09:41 | XRR_ITS ---
PROCEDURE INFORMATION: Exam: XR Chest Exam date and time: 12/27/2020 10:25 AM Age: 75 years old Clinical indication: Shortness of breath; Patient HX: SOB low o2 TECHNIQUE: Imaging protocol: XR of the chest. Views: 1 view. COMPARISON: CR XR chest 1V portable [id number] 12/24/2020 5:32 AM FINDINGS: Tubes, catheters and devices: There is an enteric tube with the tip in the body of the stomach. Lungs: Interval development of mild to moderate interstitial pulmonary edema with worsening atelectasis versus pneumonia in the right middle and lower lobes and left lingula/left lower lobe. Calcified granulomas in the right lower lobe are stable. Pleural spaces: No pleural effusion. No pneumothorax. Heart/Mediastinum: Stable moderate enlargement of the cardiac silhouette. Vasculature: Stable vascular calcifications in the aorta. Bones/joints: Bones are diffusely osteopenic. Degenerative changes in the spine and shoulders. XR/XR chest 1V portable [id number] IMPRESSION: 1. Interval development of mild to moderate interstitial pulmonary edema with worsening atelectasis versus pneumonia in the right middle and lower lobes and left lingula/left lower lobe. Recommend followup chest x-ray to ensure resolution. 2. There is an enteric tube with the tip in the body of the stomach. 3. Incidental/nonacute findings are listed in the report.
--- NOTE | 2020-12-27 10:41 | DCPLANNER ---
Pt is intubated and IMM completed with pt's sister, Génesis Callaway of the phone on 12/27/20 @ 5138
--- NOTE | 2020-12-27 11:30 | PM.PN ---
Vitals/I&O/Wt Last Vital Signs Temp 98.2 F 12/27/20 07:52 Pulse 103 H 12/27/20 10:47 Resp 27 H 12/27/20 10:00 BP 113/68 12/27/20 10:00 Pulse Ox 88 L 12/27/20 10:47 12/26/20 12/27/20 12/27/20 22:59 06:59 14:59 Intake Total 494 / 1403.117 834 / 2237.117 221.25 / 221.25 Output Total 480 / 480 350 / 830 Balance 14 / 923.117 484 / 1407.117 221.25 / 221.25 Weight last 48 hrs Weight 82.732 kg Weight 79.4 kg Physical Exam Narrative: EXAM NARRATIVE: Sister at bedside. Const: COMMON NORMALS: no acute distress; negative for patient oriented x3 GENERAL APPEARANCE: frail appearing ORIENTATION/CONSCIOUSNESS: Yes patient obtunded HENMT: COMMON NORMALS: oropharynx normal Neck/C-Spine: COMMON NORMALS: no JVD Resp: COMMON NORMALS: normal respiratory effort AUSCULTATION: rhonchi Cardio: COMMON NORMALS: no JVD, regular rhythm, S1 normal heart sound present, S2 normal heart sound present and No murmurs present (Cardio) RHYTHM: regular rhythm HEART SOUNDS: S1 normal heart sound present and S2 normal heart sound present GI: COMMON NORMALS: Normal to inspection, nondistended, normoactive bowel sounds present, Soft to palpation and non-tender PALPATION: Yes Soft to palpation Extremity: COMMON NORMALS: no joint enlargement and no pedal edema Neuro: COMMON NORMALS: negative for patient oriented x3 SENSORIUM/ORIENTATION: Yes obtunded MOTOR EXAM: Motor fasciculations not present OTHER: No facial twitching. Skin: GENERAL SKIN EXAM: ecchymosis Urinary Catheter Management^: Ricardo: Cath Placed During This Visit: yes Reason for Continuing Indwelling Catheter: Accurate Measurement of Urinary Output in Critically Ill Patients Urinary Catheter Date of Insertion: 12/22/20 Urinary Catheter Time of Insertion: 12:57 Data : 12/27/20 03:18 12/27/20 03:18 A&P Assessment and plan (1) Metabolic encephalopathy: This morning perhaps open eyes when being turned, no purposeful movements, not responding to pain during my visit, not protecting his airway from secretions. Requiring frequent suctioning, continues to have rhonchi. This morning respiratory failure with severe hypoxia, saturations in low 90s-high 80s despite 15 L nonrebreather. Obtain chest x-ray, appears to have severe pneumonia on the right side likely secondary to aspiration. Has been on ampicillin, will adjust antibiotics somewhat continue Rocephin, vancomycin, switched to Zosyn from ampicillin. Continue suctioning as tolerating. Mucomyst added to aid. Hypernatremia with mild improvement down to 150. Continue infusions with D5W. Continue attempts to break seizures. Continue high-dose Keppra, Vimpat, he is maintaining his respiratory rate, so we will resume Versed drip further today. Discussed with his sister Makayla, could not reach Génesis. Unfortunately with progressive deterioration with severe respiratory failure, which is likely to worsen, he is not likely to make it much longer. Discussed that will be likely in case of further respiratory decline and lack of improvement. His sister understands this and will also update the rest of the family. His brother is coming from out of state to see him. Continue treatment of UTI. Continue some of his medications including gabapentin. TSH is normal. With history of heavy alcohol intake, no known cirrhosis. The liver appears normal. On admission had minimal hyponatremia, mild AST elevation, although chronicity unknown. Mild increase in liver parenchyma echogenicity, but no obvious cirrhosis. No ascites. Sister reports some memory loss for about a month, but much worse and with progressive confusion for about a week. Status: Acute (2) Acute and chronic respiratory failure with hypoxia: As above. Additionally give 20 mg IV Lasix given he is in positive balance. Pneumonia, aspiration pneumonia, possible sepsis, leukocytosis 14.3, sinus tachycardia 103. Obtain blood culture. Antibiotics as above. Status: Acute (3) New onset seizure: Repeat Versed drip. Continue high doses of Keppra 4000 twice daily, lacosamide, 200 mg twice daily. Did not responded to fosphenytoin. Continue empiric antibiotics although lower suspicion for CRITICAL CARE CNS infection. Once able to would benefit from MRI assessment. Status: Acute (4) Alcohol withdrawal: Benzodiazepines, supportive care, vitamin replacement as per [facility] protocol. Status: Acute (5) UTI (urinary tract infection): Continue vancomycin. Enterococcus faecalis. No hydronephrosis on abdominal ultrasound. Status: Acute (6) Repeated falls: Secondary to metabolic encephalopathy, generalized weakness, alcohol withdrawal, UTI, will benefit from PT, OT once he is able to participate. Consider states he stayed on the floor for 3-4 hours after one of the poles until he was found. Will check CK. Has been receiving IVF until this morning, held for now as he is significantly positive balance due over the infusions. Status: Acute (7) Difficulty walking: As above. Lives alone. Status: Acute Additional A&P Information Acute hypernatremia: Switched infusions where possible to D5W base fluid. Monitor sodium. Attestations Medical Necessity Statement*: Continue admission for management of acute encephalopathy, acute hypoxic respiratory failure, multifocal seizures, pneumonia, possible sepsis. Coding Level of Care Code Acute Independent Trader for [facility] [place] Diagnoses Metabolic encephalopathy G93.41 Acute and chronic respiratory failure with hypoxia J96.21 New onset seizure R56.9 Alcohol withdrawal F10.239 UTI (urinary tract infection) N39.0 Repeated falls R29.6 Difficulty walking R26.2
[2020-12-28] VITALS (50 sets, daily range): BP systolic 77–147; BP diastolic 54–107; PULSE 79–114; RESP 17–38; TEMP 36.6–37.8; O2SAT 82–100; BMI 29.7
[2020-12-28 03:52] LABS: Basophils # 0.1 10^3/uL (0.0-0.1); Basophils % 0.8 %; Eosinophils # 0.2 10^3/uL (0.0-0.8); Eosinophils % 1.1 %; Hematocrit 25.6 % (42.0-52.0); Lymphocytes # 0.6 10^3/uL (0.8-4.8); Lymphocytes % 4.5 %; Mean Corpuscular HGB Conc 31.3 g/dL (30.0-36.0); Mean Corpuscular Hemoglobin 37.4 pg (28.0-34.0); Mean Corpuscular Volume 119.6 fL (80-94); Mean Platelet Volume 10.2 fL (7.4-10.4); Monocytes # 1.7 10^3/uL (0.2-0.9); Monocytes % 11.7 %; Neutrophils # 11.31 10^3/uL (1.8-7.7); Neutrophils % 80.1 %; Nucleated Red Blood Cells % 0.2 %; Platelet Count 377 10^3/cmm (130-400); Red Blood Count 2.14 10^6/uL (4.1-5.3); Red Cell Distribution Width 14.7 % (12.1-15.1); White Blood Count 14.1 10^3/uL (4.0-10.0)
[2020-12-28 04:24] LABS: Alanine Aminotransferase 24 U/L (0-41); Albumin Level 2.6 g/dL (3.5-5.2); Alkaline Phosphatase 72 IU/L (40-130); Anion Gap 12.1 (5-19); Aspartate Amino Transferase 50 U/L (0-40); Blood Urea Nitrogen 19 mg/dL (8-23); Calcium 9.2 mg/dL (8.5-10.5); Carbon Dioxide 23 mmol/L (22-29); Chloride 110 mmol/L (98-107); Globulin 2.8 g/dL (1.3-4.6); Glucose 141 mg/dL (65-115); Osmolality Calculated 299 mOsm/kg (285-295); Potassium 3.1 mmol/L (3.5-5.1); Sodium 142 mmol/L (136-145); Total Bilirubin 0.2 mg/dL (0.15-1.2); Total Protein 5.4 g/dL (6.6-8.7)
--- NOTE | 2020-12-28 05:48 | PC.NURSE ---
Shift Summary Patient has still not responded to anything except pain, is still having copious secretions and having to get suctioned frequently. He was on the versed drip during the day to protect him from seizures and around 2029 it was turned off, held him over all night, no seizure activity noted. He has had some blood tinged urine and sputum. He is getting iv antibiotics and has a nasal trumpet in to help manage his secretions, he is still not having good urine output and is starting to swell everywhere. Family are discussing goals of care and hopefully will have a decision today.
[2020-12-28] MEDS: gabapentin 300 mg Capsule NG-TUBE (07:59)
[2020-12-28] MEDS: folic acid 1 mg Tablet PO (07:59)
[2020-12-28] MEDS: multivitamin therapeutic Tablet 1 TAB PO (07:59)
[2020-12-28] MEDS: atorvastatin 40 mg Tablet 20 MG NG-TUBE (07:59)
[2020-12-28] MEDS: metoprolol tartrate 25 mg Tablet 12.5 MG NG-TUBE (07:59)
[2020-12-28] MEDS: clopidogrel 75 mg Tablet NG-TUBE (07:59)
[2020-12-28] MEDS: thiamine 100 mg Tablet PO (07:59)
[2020-12-28] MEDS: famotidine 20 mg/2 mL INJ IVP (08:00)
[2020-12-28] MEDS: terbinafine 1% Cream 15 gm 1 APPLIC TOPICAL (08:11)
--- NOTE | 2020-12-28 08:34 | CTR_ITS ---
PROCEDURE INFORMATION: Exam: CT Head Without Contrast Exam date and time: 12/28/2020 8:34 AM Age: 75 years old Clinical indication: Altered mental status/memory loss; Additional info: AMS TECHNIQUE: Imaging protocol: Computed tomography of the head without contrast. Radiation optimization: All CT scans at this facility use at least one of these dose optimization techniques: automated exposure control; mA and/or kV adjustment per patient size (includes targeted exams where dose is matched to clinical indication); or iterative reconstruction. COMPARISON: CT head wo con* [id number] 12/22/2020 1:13 PM RADIATION DOSE METRICS: Total DLP (mGy-cm): 1502.07 FINDINGS: Limitations: There is motion artifact partially degrading examination. Brain: There is no acute intracranial hemorrhage. There is lucency in the cerebral white matter, likely microvascular disease although non-specific. Costello white differentiation is intact. There are no extra-axial fluid collections. No evidence of mass. There is no mass effect or midline shift. Cerebral ventricles: The ventricles and sulci are enlarged, consistent with volume loss / atrophy. No hydrocephalus. Paranasal sinuses: There is mucosal thickening in left maxillary, left greater than right ethmoid, left sphenoid, and bilateral frontal sinuses. Mastoid air cells: There is small amount of bilateral posteroinferior mastoid fluid. Orbital cavity: There have been bilateral intraocular lens replacements likely related to cataract surgery. Vasculature: There is vascular calcification. Bones/joints: There is deformity anterior wall of right frontal sinus consistent with unchanged and chronic fracture. Soft tissues: Unremarkable as visualized. CT/CT head wo con* [id number] IMPRESSION: 1. No evidence of acute intracranial abnormality. No evidence of acute infarction, hemorrhage, or mass. 2. Atrophy and microvascular disease. 3. Mucosal sinus disease. Radiation Dose CTDIVOL = (mGy): DLP = 1502.07 (mGy-cm)
--- NOTE | 2020-12-28 08:34 | USR_ITS ---
PROCEDURE INFORMATION: Exam: US Duplex Bilateral Extracranial Arteries Exam date and time: 12/28/2020 8:34 AM Age: 75 years old Clinical indication: Altered mental status/memory loss; Additional info: AMS TECHNIQUE: Imaging protocol: Real-time Duplex ultrasound scan of the bilateral carotid and vertebral arteries combining swanson scale, color Doppler and spectral waveform analysis. Bilateral exam. Total images: 2004 COMPARISON: CT head wo con* [id number] 12/28/2020 9:02 AM FINDINGS: Right common carotid artery: Kyle-hb-[id number] atheromatous plaquing of the right common carotid artery bulb. No occlusion or hemodynamically significant stenosis. Waveforms are normal. Right internal carotid artery: No acceleration of the peak systolic and diastolic velocities to suggest hemodynamically significant stenosis. Mild spectral broadening. Right ICA/CCA ratio: Within normal limits. Right ICA/CCA ratio: Within normal limits. Right external carotid artery: No stenosis in the origin. Right vertebral artery: Not visualized due to patient position. Left common carotid artery: Moderate atheromatous plaquing common carotid artery bulb. No occlusion or hemodynamically significant stenosis. Mild spectral broadening. Left internal carotid artery: Maximum peak systolic velocity 188 cm/s and end-diastolic velocity of 48 cm/s. Spectral broadening. Estimated stenosis 60-79%. No occlusion. Left ICA/CCA ratio: 2.94 Left external carotid artery: No hemodynamically significant stenosis in the origin. Left vertebral artery: Unremarkable. Antegrade flow. Other findings: Examination was technically difficult due to patient's position and labored breathing. US/CV carotid duplex BI* [id number] IMPRESSION: 1. Estimated stenosis of 60-79% left internal carotid artery. 2. Right vertebral artery not visualized due to patient position. REFERENCES: SRU CRITERIA. The degree of internal carotid artery stenosis is based on criteria defined by the Society of Radiologists in Ultrasound (SRU). Normal is no stenosis. Mild is less than 50% stenosis. Moderate is 50-69% stenosis. Severe is greater than 69% stenosis to near occlusion. Near occlusion is a markedly narrowed lumen. Total occlusion is no detectable patent lumen.
--- NOTE | 2020-12-28 08:34 | CTR_ITS ---
PROCEDURE INFORMATION: Exam: CT Chest Without Contrast; Diagnostic Exam date and time: 12/28/2020 8:34 AM Age: 75 years old Clinical indication: Shortness of breath; Additional info: Hypoxia TECHNIQUE: Imaging protocol: Diagnostic computed tomography of the chest without contrast. Radiation optimization: All CT scans at this facility use at least one of these dose optimization techniques: automated exposure control; mA and/or kV adjustment per patient size (includes targeted exams where dose is matched to clinical indication); or iterative reconstruction. COMPARISON: CR (CHEST, ) 12/27/2020 10:25 AM RADIATION DOSE METRICS: Total DLP (mGy-cm): 741.09 FINDINGS: Tubes, catheters and devices: Enteric tube tip is over the body of the stomach (mid stomach). Lungs: Moderate to severe bilateral nonspecific patchy interstitial and alveolar opacities most consistent with moderate to severe bilateral pneumonia. Pleural spaces: Bilateral mild to moderate pleural fluid collections. Heart: Unremarkable. No cardiomegaly. No pericardial effusion. Aorta: Unremarkable. No aortic aneurysm. Lymph nodes: Calcified bilateral hilar nodes and/or mediastinal nodes and/or lung granulomas consistent with old granulomatous disease. Bones/joints: Mild thoracic spondylosis. Soft tissues: Unremarkable. CT/CT chest wo con [id number] IMPRESSION: 1. Bilateral mild to moderate pleural fluid collections. 2. Moderate to severe bilateral nonspecific patchy interstitial and alveolar opacities most consistent with moderate to severe bilateral pneumonia. Radiation Dose CTDIVOL = (mGy): DLP = 741.09 (mGy-cm)
[2020-12-28] MEDS: FUROsemide 10 mg/mL SDV 4mL 40 MG IVP (09:58)
[2020-12-28] MEDS: lidocaine 1% 5 ML in potassium chloride premix 100 ML 25 ML IV (10:19)
[2020-12-28 12:14] LABS: Vancomycin Trough 41.9 ug/mL (10-15)
--- NOTE | 2020-12-28 14:45 | PM.PN ---
Subjective Subjective: Interval history: Patient was seen this morning, he does have a cough reflex, does have a gag reflex, pupils are pinpoint bilaterally, minimally reactive to light, does not withdraw from pain, no response to sternal rub, Babinski's reflex upward going bilaterally remained afebrile overnight, he is oxygen requirements have been titrated down to 4 L, he does have peripheral edema, does have crackles on exam, I have given him an extra dose of Lasix, he has had good urine output, I have broaden his antibiotic coverage to Primaxin, currently on 2 to 4 L, still nonresponsive, receiving good deep suctioning by nursing staff, I had a family meeting with patient's 2 sisters, and brother. I have gone over the case with him, discussed with them my concerns for intractable epilepsy, likely alcohol withdrawal, he is on optimal medical therapy currently, receiving Versed pushes as needed, unfortunately cannot use a Versed drip given his desire not to be intubated. In terms of respiratory status, he does look fluid overloaded, receiving diuretic therapy, broad-spectrum antibiotic therapy. In terms of his cognitive functioning, does not respond to commands, does not withdraw from pain, this has not changed in the last few days according to nursing staff.Family wants to respect his wishes, he would not want to be intubated, they tell me, he would not want artificial life support, he would not like a feeding tube, he would not want aggressive interventions, he has voiced to the family multiple times that he would just want to at home, and he did not want to come to the hospital in the first place. discussed the options that are available to him, including contining medical interventions and giving him time, transferring for continuous EEG monitoring and higher level of care, versus comfort care per I discussed the risks and benefits of each of the options, they voiced understanding, all questions answered, both the sisters and the brothers came to agreement of comfort care. After discussing the risk and benefits, they versus any, all questions answered, agreed to proceed with comfort care. However I advised him that as they are not the next of kin I do need a decision from Suzanna. I spoke to patient's daughter Rossy, I discussed the case in detail with her, discussed the options that are available to him, she voiced understanding, all questions answered, she agreed with family's decision for comfort care. I spoke to son, sunny, I discussed the case in detail with him, he discussed all the options available to him, he voiced understanding, all questions answered, agreed with family decision for comfort care Proceeding with comfort care Vitals/I&O/Wt Last Vital Signs Temp 98.3 F 12/28/20 08:00 Pulse 96 12/28/20 14:30 Resp 24 H 12/28/20 14:30 BP 77/59 12/28/20 14:30 Pulse Ox 93 12/28/20 14:30 12/27/20 12/28/20 12/28/20 22:59 06:59 14:59 Intake Total 555.95 / 1367.20 834 / 2201.20 559 / 559 Output Total 325 / 325 350 / 675 Balance 230.95 / 1042.20 484 / 1526.20 559 / 559 Weight last 48 hrs Weight 86 kg Weight 82.732 kg Physical Exam Const: COMMON NORMALS: no acute distress ORIENTATION/CONSCIOUSNESS: not awake, not oriented to person, not oriented to place and not oriented to time Resp: EFFORT & INSPECTION: Yes tachypneic AUSCULTATION: crackles and diminished lung sounds Cardio: COMMON NORMALS: regular rate, regular rhythm, S1 normal heart sound present and S2 normal heart sound present RATE: regular rate RHYTHM: regular rhythm HEART SOUNDS: S1 normal heart sound present and S2 normal heart sound present GI: COMMON NORMALS: Normal to inspection, nondistended, normoactive bowel sounds present Extremity: NARRATIVE EXTREMITY EXAM: 1+ pitting edema, bilaterally, generalized anasarca Neuro: SENSORIUM/ORIENTATION: No oriented to person, No oriented to place and No oriented to time Urinary Catheter Management^: Ricardo: Cath Placed During This Visit: yes Reason for Continuing Indwelling Catheter: Accurate Measurement of Urinary Output in Critically Ill Patients Urinary Catheter Date of Insertion: 12/22/20 Urinary Catheter Time of Insertion: 12:57 Data : 12/28/20 02:41 12/28/20 02:41 Micro: Microbiology 12/27/20 12:12 Blood Culture - Preliminary Blood NEGATIVE TO DATE 12/27/20 12:05 Blood Culture - Preliminary Blood NEGATIVE TO DATE 12/22/20 14:05 Blood Culture - Final Blood NO GROWTH AFTER 5 DAYS 12/22/20 14:25 Blood Culture - Final Blood NO GROWTH AFTER 5 DAYS A&P Assessment and plan (1) Metabolic encephalopathy: Proceeding with comfort care Will start comfort care orders This morning perhaps open eyes when being turned, no purposeful movements, not responding to pain during my visit, not protecting his airway from secretions. Requiring frequent suctioning, continues to have rhonchi. This morning respiratory failure with severe hypoxia, saturations in low 90s-high 80s despite 15 L nonrebreather. Obtain chest x-ray, appears to have severe pneumonia on the right side likely secondary to aspiration. Has been on ampicillin, will adjust antibiotics somewhat continue Rocephin, vancomycin, switched to Zosyn from ampicillin. Continue suctioning as tolerating. Mucomyst added to aid. Hypernatremia with mild improvement down to 150. Continue infusions with D5W. Continue attempts to break seizures. Continue high-dose Keppra, Vimpat, he is maintaining his respiratory rate, so we will resume Versed drip further today. Discussed with his sister Makayla, could not reach Génesis. Unfortunately with progressive deterioration with severe respiratory failure, which is likely to worsen, he is not likely to make it much longer. Discussed that will be likely in case of further respiratory decline and lack of improvement. His sister understands this and will also update the rest of the family. His brother is coming from out of state to see him. Continue treatment of UTI. Continue some of his medications including gabapentin. TSH is normal. With history of heavy alcohol intake, no known cirrhosis. The liver appears normal. On admission had minimal hyponatremia, mild AST elevation, although chronicity unknown. Mild increase in liver parenchyma echogenicity, but no obvious cirrhosis. No ascites. Sister reports some memory loss for about a month, but much worse and with progressive confusion for about a week. Status: Acute (2) Acute and chronic respiratory failure with hypoxia: As above. Additionally give 20 mg IV Lasix given he is in positive balance. Pneumonia, aspiration pneumonia, possible sepsis, leukocytosis 14.3, sinus tachycardia 103. Obtain blood culture. Antibiotics as above. Status: Acute (3) New onset seizure: Repeat Versed drip. Continue high doses of Keppra 4000 twice daily, lacosamide, 200 mg twice daily. Did not responded to fosphenytoin. Continue empiric antibiotics although lower suspicion for [employer] infection. Once able to would benefit from MRI assessment. Status: Acute (4) Alcohol withdrawal: Benzodiazepines, supportive care, vitamin replacement as per [facility] protocol. Status: Acute (5) UTI (urinary tract infection): Continue vancomycin. Enterococcus faecalis. No hydronephrosis on abdominal ultrasound. Status: Acute (6) Repeated falls: Secondary to metabolic encephalopathy, generalized weakness, alcohol withdrawal, UTI, will benefit from PT, OT once he is able to participate. Consider states he stayed on the floor for 3-4 hours after one of the poles until he was found. Will check CK. Has been receiving IVF until this morning, held for now as he is significantly positive balance due over the infusions. Status: Acute (7) Difficulty walking: As above. Lives alone. Status: Acute Additional A&P Information Acute hypernatremia: Switched infusions where possible to D5W base fluid. Monitor sodium. Attestations Medical Necessity Statement*: Patient requires hospitalization for comfort care Coding Level of Care Code Acute Bull Driver for [facility] Diagnoses Metabolic encephalopathy G93.41 Acute and chronic respiratory failure with hypoxia J96.21 New onset seizure R56.9 Alcohol withdrawal F10.239 UTI (urinary tract infection) N39.0 Repeated falls R29.6 Difficulty walking R26.2
--- NOTE | 2020-12-28 23:08 | PC.NURSE ---
Transfer Patient to Med-Surg Transferred patient to [facility]-surg by bed. Patient on 2L NC upon time of transfer. Gave the nurse assuming care patient chart and looked over patient arms, legs, and IV sites. No new findings were noted upon physical exam.
[2020-12-29] VITALS: BP 136/84; PULSE 102; RESP 25; TEMP 37.6; O2SAT 96
[2020-12-29 04:00] VITALS: BP 152/97; PULSE 116; RESP 30; TEMP 37.2; O2SAT 83
[2020-12-29 08:00] VITALS: BP 74/52; PULSE 110; RESP 32; TEMP 36.9; O2SAT 78
--- NOTE | 2020-12-29 08:51 | PC.NURSE ---
reported to nurse high bp the low o2 and the high respiration rates
[2020-12-29 12:00] VITALS: BP 89/62; PULSE 118; RESP 30; O2SAT 85
--- NOTE | 2020-12-29 12:03 | PC.NURSE ---
PATIENT ON COMFORT CARE MESSURES
--- NOTE | 2020-12-29 13:40 | PC.NURSE ---
Dr. Cruz notified that patient has .
--- NOTE | 2020-12-29 13:55 | PM.DDS ---
Discharge Providers DDS Date of Admission: 12/22/20 17:38 Date Summary Completed: 12/29/20 Attending Provider at Admission: Remy Greenwood Time of : 13:39 Attending Provider at Discharge: Esteban Cruz MD Primary Care Provider: [facility] Diagnoses Hospital Diagnoses (1) Metabolic encephalopathy: (2) Acute and chronic respiratory failure with hypoxia: (3) New onset seizure: (4) Alcohol withdrawal: (5) UTI (urinary tract infection): (6) Repeated falls: (7) Difficulty walking: Reason for Visit Reason for Visit: AMS/ POSSIBLE SEIZURE Summary Date and Time of Date of : 12/29/20 Time of : 13:39 Summary Summary: This is a 75-year-old male with a past medical history of CAD, hypertension, current smoker, current history of alcohol abuse, COPD, cardiomyopathy, intermittently visited by his sister for help around home and to check up on him, doing groceries delivered to him, he was had a slow decline over the last few months, now more confused, has had frequent falls, has had increased alcohol consumption, has had more trouble with his memory. Patient was admitted to [facility] for concerns for metabolic encephalopathy, alcohol withdrawal seizures, acute respiratory failure secondary to aspiration pneumonia, UTI, repeated falls. For patient's metabolic encephalopathy, secondary to alcohol withdrawal seizures, alcoholism, aspiration pneumonia, UTI, throughout his hospital admission, he did not have any purposeful movements, did not respond to stimuli, did not respond to painful stimuli, did not withdraw from pain, pupils were minimally reactive to light, did have a cough reflex, did have a gag reflex. He was treated with broad-spectrum antibiotic therapy, antiseizure medications as below, his respiratory status was optimized with Lasix, received oxygen therapy, multiple head CTs did not show any acute intracranial abnormality. However after 7 days of inpatient treatment, his mentation did not significantly improve. After did discussion with family, and patient's next of kin which was his son and daughter, multiple options were discussed about patient care with family members. Including continuing medical care, transfer to higher level center, or comfort care. All parties wanted to proceed with comfort care, I also personally spoke to each family member including patient's next of kin his son and his daughter who confirmed the plan to proceed with comfort care. To me, family members were abiding by patient's wishes, it was patient's wish to not have aggressive interventions, to not to be intubated, he did not want any type of artificial feeding, he did not initially even want to come to the hospital, according to his family, it was his wish to pass away at home. After discussion of the risks and benefits, all parties voiced understanding, all questions answered, agreed to proceed with comfort care. Comfort care was initiated, patient 12/29/2020 at 1:39 PM For his epilepsy partialis continua, pharmaco resistant, neurology was consulted, had an EEG, he was treated with high doses of Keppra, and lacosamide. However patient's mentation did not significantly improve, as per his wishes he did not want to be intubated, thus options were limited, nonetheless he was treated with intermittent as needed doses of Versed. However there was no significant improvement in his mentation, proceeded with comfort care UTI treated with broad-spectrum antibiotic therapy, no significant improvement in his mentation, proceeded with comfort care Patient did develop acute hypoxic respiratory failure during his hospitalization secondary to aspiration pneumonia, CT of the chest showed bilateral pneumonias, he was kept on broad-spectrum antibiotic therapy, he also had evidence of fluid overload treated with intermittent Lasix therapy. His oxygen requirements did increase to high flow oxygen therapy, which was weaned down to 2 to 4 L with an aggressive pulmonary toilet. However there was no significant improvement in his mentation, his oxygen requirements continued to increase, he continued to have diffuse crackles on exams, evidence of fluid overload. Proceeded with comfort care. Additional Data Advance directives?: No Discharge Plan Discharge Patient Disposition: Condition: Stable Prescriptions: No Action gabapentin 300 mg capsule 300 mg PO BID RF: 0 simvastatin 40 mg tablet 40 mg PO DAILY Qty: 90 RF: 3 metoprolol tartrate 50 mg tablet 50 mg PO BID Qty: 180 RF: 0 losartan 50 mg tablet 50 mg PO DAILY Qty: 90 RF: 3 Aspir-81 81 mg Tablet,Delayed Release (Dr/Ec) 81 mg PO DAILY RF: 0 hydroxyzine HCl 10 mg/5 mL Solution 10 mg PO QID PRN (Reason: UNKNOWN) RF: 0 terbinafine HCl 1 % Cream 1 applic TOPICAL BID RF: 0 tamsulosin [Flomax] 0.4 mg Capsule 0.4 mg PO DAILY RF: 0 pantoprazole [Protonix] 40 mg Tablet,Delayed Release (Dr/Ec) 40 mg PO DAILY RF: 0 naproxen sodium [Aleve] 220 mg Tablet 220 - 440 mg PO PRN RF: 0 furosemide [Lasix] 20 mg Tablet 20 mg PO DAILY RF: 0 albuterol sulfate [ProAir HFA] 90 mcg/actuation Hfa Aerosol Inhaler 2 puff INHALATION Q4H PRN (Reason: Shortness Of Breath) RF: 0 clopidogrel 75 mg tablet 75 mg PO DAILY RF: 0 Referrals: [facility] [Primary Care Provider] - DS Attestations Time Spent in /Discharge Care*: greater than 30 min Quality - AMI: AMI present?: No Quality - Stroke: CVA present?: No Quality - VTE: VTE present?: No Coding Level of Care Code Acute Oil Rag Washer for g [facility]wd Diagnoses Metabolic encephalopathy G93.41 Acute and chronic respiratory failure with hypoxia J96.21 New onset seizure R56.9 Alcohol withdrawal F10.239 UTI (urinary tract infection) N39.0 Repeated falls R29.6 Difficulty walking R26.2
== END 2020-12-29 18:58 | disposition expired | DRG 100 ==
LOC: ER 14:45 → ICU 12-23 07:12 → MEDSURG 12-28 23:13
PROVIDERS: Admitting Provider Internal Medicine; Emergency Provider Family Medicine; Visit Provider Family Medicine
DX: G40.119 Localization-related (focal) (partial) symptomatic epilepsy and epileptic syndromes with simple partial seizures, intractable, without status epilepticus (principal); G93.41 Metabolic encephalopathy; J69.0 Pneumonitis due to inhalation of food and vomit; J96.21 Acute and chronic respiratory failure with hypoxia; K70.41 Alcoholic hepatic failure with coma; F10.239 Alcohol dependence with withdrawal, unspecified; N39.0 Urinary tract infection, site not specified; E87.1 Hypo-osmolality and hyponatremia; E87.0 Hyperosmolality and hypernatremia; I42.9 Cardiomyopathy, unspecified; R29.6 Repeated falls; S90.415D Abrasion, left lesser toe(s), subsequent encounter; S90.414D Abrasion, right lesser toe(s), subsequent encounter; W19.XXXD Unspecified fall, subsequent encounter; F17.210 Nicotine dependence, cigarettes, uncomplicated; E78.5 Hyperlipidemia, unspecified; J44.9 Chronic obstructive pulmonary disease, unspecified; I25.10 Atherosclerotic heart disease of native coronary artery without angina pectoris; I10 Essential (primary) hypertension; I25.2 Old myocardial infarction; E87.70 Fluid overload, unspecified; D64.9 Anemia, unspecified; L30.0 Nummular dermatitis; G89.29 Other chronic pain; M25.512 Pain in left shoulder; F03.90 Unspecified dementia, unspecified severity, without behavioral disturbance, psychotic disturbance, mood disturbance, and anxiety; Z79.82 Long term (current) use of aspirin; Z79.02 Long term (current) use of antithrombotics/antiplatelets; Z86.73 Personal history of transient ischemic attack (TIA), and cerebral infarction without residual deficits; Z66 Do not resuscitate
CPT/HCPCS: 36415; 36600; 51702; 70450; 71045; 71250; 73630; 76700; 80051; 80053; 80202; 81001; 82140; 82330; 82550; 82607; 82805; 83605; 83735; 84443; 84484; 85025; 87040; 87077; 87086; 87186; 93005; 93880; 94799; 96365; 96367; 96372; 96375; 99291; C9254; J0133; J0290; J0696; J1940; J1953; J2060; J2250; J2543; J3370; J3411; J3475; J3480; J3490; J7030; J7050; Q2009